=== PATIENT | male | born 1965 | race Caucasian/White ===

== ENCOUNTER 2016-12-17 12:53 | Emergency (ER) | payer MEDICARE | END 2016-12-17 14:22 | disposition left against medical advice (07) | LOC: UCCORT 12:53 | DX: M79.662 Pain in left lower leg (principal); Z53.21 Procedure and treatment not carried out due to patient leaving prior to being seen by health care provider ==

== ENCOUNTER 2018-02-27 15:48 | Emergency (ER) | payer MEDICARE ==
[2018-02-27] MEDS ORDERED: NS 0.9% 1000 ML* 1,000 ML IV ONE (15:57)
[2018-02-27] MEDS ORDERED: Morphine VIAL* 4 MG/ML VIAL (1 ml vial) IV ONE (15:58)
[2018-02-27 16:37] LABS: ABS Basophils 0 10^3/ul (0-0.2); ABS Eosinophils 0.2 10^3/ul (0-0.6); ABS Lymphocytes 1.1 10^3/ul (1.0-4.8); ABS Monocytes 1.3 10^3/ul (0-0.8); ABS Neutrophils 9.1 10^3/ul (1.5-7.7); ABS Nucleated RBC 0 10^3/ul; Eosinophil % 1.6 % (0-6); Hematocrit 27 % (42-52); Hemoglobin 9.1 g/dl (14.0-18.0); Lymphocyte % 9.5 % (25-47); Mean Corpuscular HGB Conc 33 g/dl (31-36); Mean Corpuscular Hemoglobin 30 pg (27-31); Mean Corpuscular Volume 91 fL (80-94); Mean Platelet Volume 6.4 um3 (7.4-10.4); Nucleated Red Blood Cells % 0; Platelet Count 515 10^3/ul (150-450); Red Blood Count 2.99 10^6/ul (4.00-5.40); Red Cell Distribution Width 16 % (10.5-15); White Blood Count 11.7 10^3/ul (3.5-10.8)
[2018-02-27 16:52] LABS: INR 1.28 (0.77-1.02)
[2018-02-27 17:04] LABS: EGFR Non-African American 159.2 (>60)
[2018-02-27 17:20] LABS: Urine Appearance Clear; Urine Blood Negative (Negative); Urine Color Yellow; Urine Ketones Trace (Negative); Urine Protein Negative (Negative); Urine Specific Gravity 1.059 (1.010-1.030); Urine Urobilinogen Negative (Negative)
[2018-02-27] MEDS ORDERED: HYDROmorphone INJ* 2 MG/ML CARPUJECT SYRINGE IV SLOW PU ONE (17:27)
--- NOTE | 2018-02-27 17:45 | ED ---
Carlitos Quigley Angela, scribed for Sina Tillman MD on 02/27/18 at 1555 . Abdominal Pain/Male - HPI Summary HPI Summary: This pt is a 53 y/o male presenting to [facility] via EMS from Urgent care for abd pain x1 week and possible bowel obstruction. Pt was at Urgent Care where he had a CT scan of his abdomen/pelvis. He states he has hx of rectal CA and on February 02, 2018 pt had an ileostomy reversal where he thinks most of his large intestine was removed, procedure done in [facility]. Pt states his abdominal pain began 1 week ago. He reports he has been moving his bowels every day, the last time he had a bowel movement was today at around noon. Pt describes his stool as water. Denies hard stools. Pt additionally reports abdominal bloating and distension. Denies fever, nausea, vomiting, chest pain, SOB. Pt is on morphine for chronic back pain. - History of Current Complaint Stated Complaint: ABD PAIN Hx Obtained From: Patient Onset/Duration: Lasting Days, Still Present Timing: Lasting Days Severity Currently: Severe Pain Intensity: 10 Pain Scale Used: 0-10 Numeric Location: Diffuse Radiates: No Aggravating Factor(s): Nothing Alleviating Factor(s): Nothing Associated Signs And Symptoms: Positive: Diarrhea, Other - NEG: SOB. POS: bloated. Negative: Fever, Chest Pain, Nausea, Vomiting - Allergies/Home Medications Allergies/Adverse Reactions: Allergies Allergy/AdvReac Type Severity Reaction Status Date / Time LAYS POTATO CHIPS Allergy MOOD SWINGS Uncoded 06/10/17 15:20 MULSCLE RELAXERS Allergy SEVERE Uncoded 06/10/17 15:20 DEPRESSION PMH/Surg Hx/FS Hx/Imm Hx Endocrine/Hematology History: Denies: Hx Diabetes, Other Endocrine/Hematological Disorders Cardiovascular History: Denies: Hx Congestive Heart Failure, Hx Hypertension, Hx Pacemaker/ICD, Other Cardiovascular Problems/Disorders Respiratory History: Denies: Other Respiratory Problems/Disorders GI History: Reports: Other GI Disorders - NEW DX OF RECTAL CA History: Reports: Other Problems/Disorders - 2 months ago frequent urination Denies: Hx Renal Disease Musculoskeletal History: Reports: Hx Arthritis - BACK, Other Musculoskeletal History - see surgeries Sensory History: Denies: Hx Contacts or Glasses, Hx Hearing Aid, Other Sensory Impairments Opthamlomology History: Denies: Hx Contacts or Glasses, Other Sensory Impairments Neurological History: Reports: Other Neuro Impairments/Disorders - DEPRESSION/ PARANOID DELUSIONS Psychiatric History: Reports: Hx Anxiety, Hx Depression, Hx Suicide Attempt Denies: Hx Eating Disorder, Hx Panic Disorder, Other Psychiatric Issues/ Disorders - Cancer History Cancer Type, Location and Year: RECTAL CA- COLON RECTION Hx Chemotherapy: Yes - 05/22 Hx Radiation Therapy: Yes - Surgical History Surgery Procedure, Year, and Place: BACK SURGERY x 2. CSP - FUSION - ANTERIOR APPROACH. right femur ORIF. ERNESTO KNEES SCOPING. BOWEL RESECTION FOR CA 01/19 [facility]. R COLECTOMY WITH ILEOSTOMY 02/01/14. ILEOSTOMY REVERSAL [facility] Hx Anesthesia Reactions: No - Social History Alcohol Use: Occasionally Alcohol Amount: WEEKENDS IN THE SUMMER Substance Use Type: Reports: None Smoking Status (MU): Former Smoker Type: Cigarettes Length of Time of Smoking/Using Tobacco: 15 YRS Have You Smoked in the Last Year: No Review of Systems Negative: Fever Negative: Chest Pain Negative: Shortness Of Breath Gastrointestinal: Other - Abdominal distension and bloating Positive: Abdominal Pain, Diarrhea. Negative: Vomiting, Nausea All Other Systems Reviewed And Are Negative: Yes Physical Exam - Summary Physical Exam Summary: Appearance: Well appearing, no pain distress Skin: warm, dry, reflects adequate perfusion Head/face: normal. Moist mucous membranes. Eyes: EOMI, RAMU ENT: normal Neck: supple, non-tender Respiratory: CTA, breath sounds present Cardiovascular: RRR, pulses symmetrical Abdomen: Firmness on the subcutaneous tissue in the RLQ. Tenderness around this area. Right side of abd is all firm. Air tympany on the right side of abd. Bowel: present Musculoskeletal: normal, strength/ROM intact Neuro: normal, sensory motor intact, A&Ox3 Triage Information Reviewed: Yes Vital Signs On Initial Exam: Initial Vitals Temp Pulse Resp BP Pulse Ox 99.7 F 100 20 161/106 94 02/27/18 15:58 02/27/18 15:58 02/27/18 15:58 02/27/18 15:58 02/27/18 15:58 Vital Signs Reviewed: Yes Diagnostics - Vital Signs Vital Signs Temp Pulse Resp BP Pulse Ox 02/27/18 17:36 18 02/27/18 16:29 21 152/98 02/27/18 16:13 20 02/27/18 16:00 101 18 95 02/27/18 15:58 99.7 F 100 20 161/106 95 - Laboratory Lab Results: Lab Results 02/27/18 02/27/18 02/27/18 Range/Units 16:28 16:28 16:28 WBC 11.7 H (3.5-10.8) 10^3/ul RBC 2.99 L (4.00-5.40) 10^6/ul Hgb 9.1 L (14.0-18.0) g/dl Hct 27 L (42-52) % MCV 91 (80-94) fL MCH 30 (27-31) pg MCHC 33 (31-36) g/dl RDW 16 H (10.5-15) % Plt Count 515 H (150-450) 10^3/ul MPV 6.4 L (7.4-10.4) um3 Neut % (Auto) 77.3 (38-83) % Lymph % (Auto) 9.5 L (25-47) % [place] % (Auto) 11.4 H (0-7) % Eos % (Auto) 1.6 (0-6) % Baso % (Auto) 0.2 (0-2) % Absolute Neuts (auto) 9.1 H (1.5-7.7) 10^3/ul Absolute Lymphs (auto) 1.1 (1.0-4.8) 10^3/ul Absolute Monos (auto) 1.3 H (0-0.8) 10^3/ul Absolute Eos (auto) 0.2 (0-0.6) 10^3/ul Absolute Basos (auto) 0 (0-0.2) 10^3/ul Absolute Nucleated RBC 0 10^3/ul Nucleated RBC % 0 INR (Anticoag Therapy) 1.28 H (0.77-1.02) APTT 31.6 (26.0-36.3) seconds Sodium 135 (135-145) mmol/L Potassium 3.3 L (3.5-5.0) mmol/L Chloride 95 L (101-111) mmol/L Carbon Dioxide 31 (22-32) mmol/L Anion Gap 9 (2-11) mmol/L BUN 10 (6-24) mg/dL Creatinine 0.54 L (0.67-1.17) mg/dL Est GFR ( Amer) 192.6 (>60) Est GFR (Non-Af Amer) 159.2 (>60) BUN/Creatinine Ratio 18.5 (8-20) Glucose 95 (70-100) mg/dL Lactic Acid (0.5-2.0) mmol/L Calcium 9.3 (8.6-10.3) mg/dL Total Bilirubin 0.40 (0.2-1.0) mg/dL AST 31 (13-39) U/L ALT 49 (7-52) U/L Alkaline Phosphatase 105 H (34-104) U/L Troponin I 0.01 (<0.04) ng/mL C-Reactive Protein 273.55 H (<8.01) mg/L Total Protein 7.6 (6.4-8.9) g/dL Albumin 3.1 L (3.2-5.2) g/dL Globulin 4.5 H (2-4) g/dL Albumin/Globulin Ratio 0.7 L (1-3) Lipase < 10 L (11.0-82.0) U/L Urine Color Urine Appearance Urine pH (5-9) Ur Specific [place] (1.010-1.030) Urine Protein (Negative) Urine Ketones (Negative) Urine Blood (Negative) Urine Nitrate (Negative) Urine Bilirubin (Negative) Urine Urobilinogen (Negative) Ur Leukocyte Esterase (Negative) Urine Glucose (Negative) 02/27/18 02/27/18 Range/Units 16:28 17:04 WBC (3.5-10.8) 10^3/ul RBC (4.00-5.40) 10^6/ul Hgb (14.0-18.0) g/dl Hct (42-52) % MCV (80-94) fL MCH (27-31) pg MCHC (31-36) g/dl RDW (10.5-15) % Plt Count (150-450) 10^3/ul MPV (7.4-10.4) um3 Neut % (Auto) (38-83) % Lymph % (Auto) (25-47) % [place] % (Auto) (0-7) % Eos % (Auto) (0-6) % Baso % (Auto) (0-2) % Absolute Neuts (auto) (1.5-7.7) 10^3/ul Absolute Lymphs (auto) (1.0-4.8) 10^3/ul Absolute Monos (auto) (0-0.8) 10^3/ul Absolute Eos (auto) (0-0.6) 10^3/ul Absolute Basos (auto) (0-0.2) 10^3/ul Absolute Nucleated RBC 10^3/ul Nucleated RBC % INR (Anticoag Therapy) (0.77-1.02) APTT (26.0-36.3) seconds Sodium (135-145) mmol/L Potassium (3.5-5.0) mmol/L Chloride (101-111) mmol/L Carbon Dioxide (22-32) mmol/L Anion Gap (2-11) mmol/L BUN (6-24) mg/dL Creatinine (0.67-1.17) mg/dL Est GFR ( Amer) (>60) Est GFR (Non-Af Amer) (>60) BUN/Creatinine Ratio (8-20) Glucose (70-100) mg/dL Lactic Acid 0.7 (0.5-2.0) mmol/L Calcium (8.6-10.3) mg/dL Total Bilirubin (0.2-1.0) mg/dL AST (13-39) U/L ALT (7-52) U/L Alkaline Phosphatase (34-104) U/L Troponin I (<0.04) ng/mL C-Reactive Protein (<8.01) mg/L Total Protein (6.4-8.9) g/dL Albumin (3.2-5.2) g/dL Globulin (2-4) g/dL Albumin/Globulin Ratio (1-3) Lipase (11.0-82.0) U/L Urine Color Yellow Urine Appearance Clear Urine pH 6.0 (5-9) Ur Specific [place] 1.059 H (1.010-1.030) Urine Protein Negative (Negative) Urine Ketones Trace A (Negative) Urine Blood Negative (Negative) Urine Nitrate Negative (Negative) Urine Bilirubin Negative (Negative) Urine Urobilinogen Negative (Negative) Ur Leukocyte Esterase Negative (Negative) Urine Glucose Negative (Negative) Result Diagrams: 02/27/18 16:28 02/27/18 16:28 Lab Statement: Any lab studies that have been ordered have been reviewed, and results considered in the medical decision making process. - EKG 15:59 Cardiac Rate: NL - at 93 bpm EKG Rhythm: Sinus Rhythm ST Segment: Normal EKG Interpretation: Normal axis. Normal intervals. - Additional Comments Diagnostic Additional Comments: Abdomen/Pelvis CT, as read by radiologist IMPRESSION: 1. LARGE AIR-FLUID COLLECTION IN THE RIGHT UPPER QUADRANT SUSPICIOUS FOR A HIGH- GRADE CLOSED LOOP OBSTRUCTION ADJACENT TO A SURGICAL SITE LESS LIKELY A LARGE ABSCESS. RECOMMEND URGENT SURGICAL CONSULTATION. IN ADDITION A FOLLOW-UP CT OF THE ABDOMEN WITHOUT IV CONTRAST IN APPROXIMATELY 2 HOURS MAY BE HELPFUL IN FURTHER DEFINING THIS ABNORMALITY WITH PROGRESSION OF THE ORAL CONTRAST ON THE CURRENT STUDY. 2. THICKENED GALLBLADDER WALL POSSIBLY RELATED TO INFLAMMATION FROM THE ADJACENT DILATED FLUID-FILLED STRUCTURE. 3. NEW SLIGHTLY COMPLEX CYSTIC STRUCTURE WITHIN THE LIVER. RECOMMEND AN ULTRASOUND OF THE LIVER FOR FURTHER EVALUATION. 4. SMALL AMOUNT OF FREE INTRAPERITONEAL FLUID. 5. HEPATOSPLENOMEGALY. Re-Evaluation - Re-Evaluation First Eval Re-Evaluation Time: 16:40 Comment: Dr. Dominguez is the accepting physician from [facility]. Pt will be going to the ER. Abdominal Pain Fem Course/Dx - Course Course Of Treatment: Patient had CT scan performed at the urgent care prior to being sent to this facility. The urgent care CT shows high grade closed loop bowel obstruction right near the area of the stoma. The patient's abdomen is firm and very tender as well as distended. We spoke with the office of the colorectal surgeon will be looking for the patient on arrival to [facility] in [place]. Accepting physician is in the ER. The patient was treated for his discomfort. He will be transported by ALS ambulance. - Diagnoses Differential Diagnosis/HQI/PQRI: Other - Small bowel obstruction versus abscess Provider Diagnoses: Small bowel obstruction due to postoperative adhesions, Status post reversal of ileostomy - Provider Notifications Discussed Care Of Patient With: KURTIS Daniel Time Discussed With Above Provider: 16:19 Instructed by Provider To: Other - I discussed pt care with KURTIS Daniel, from Colorectal surgery - [facility], and is aware of the pt being transferred. Discharge - Sign-Out/Discharge Documenting (check all that apply): Discharge/Admit/Transfer - Transfer - Discharge Plan Condition: Fair Disposition: TRANS HIGHER LVL OF CARE FAC Referrals: No Primary Care Phys,NOPCP [Primary Care Provider] - - Billing Disposition and Condition Condition: FAIR Disposition: Trans Higher Lvl of Care Fac The documentation as recorded by the Carlitos thomas Angela accurately reflects the service I personally performed and the decisions made by me, Sina Tillman MD.
[2018-02-27 17:57] VITALS: BP 158/101
== END 2018-02-27 17:57 | disposition short-term general hospital (02) ==
LOC: ED 15:48
DX: K56.50 Intestinal adhesions [bands], unspecified as to partial versus complete obstruction (principal); C20 Malignant neoplasm of rectum; M54.9 Dorsalgia, unspecified; G89.29 Other chronic pain; Z85.528 Personal history of other malignant neoplasm of kidney; Z90.49 Acquired absence of other specified parts of digestive tract; Z87.891 Personal history of nicotine dependence; Z98.890 Other specified postprocedural states; Z88.8 Allergy status to other drugs, medicaments and biological substances; R16.2 Hepatomegaly with splenomegaly, not elsewhere classified; K76.89 Other specified diseases of liver
CPT/HCPCS: 36415; 80053; 81003; 83605; 83690; 84484; 85025; 85610; 85730; 86140; 87040; 93005; 96361; 96374; 96375; 99284; J1170; J2270

== ENCOUNTER 2019-10-18 17:42 | Emergency (ER) | payer MEDICARE ==
--- NOTE | 2019-10-18 19:01 | ED ---
Lower Extremity - HPI Summary HPI Summary: Patient with history of chronic EtOH and varicose veins in left lower extremity complains of bleed from site of varicose vein on left calf. States week ago at same site. Patient states he believes he scraped the scab off today. Bleeding controlled. Patient states he did not want to come to the ED. Denies any other pain, injury or symptoms. - History of Current Complaint Chief Complaint: EDExtremityLower Stated Complaint: LEG PAIN PER EMS Time Seen by Provider: 10/18/19 17:59 Hx Obtained From: Patient Mechanism Of Injury: Other Onset/Duration: Hours Severity Currently: None Pain Intensity: 0 Pain Scale Used: 0-10 Numeric Associated Signs And Symptoms: Positive: Negative Able to Bear Weight: Yes - Allergies/Home Medications Allergies/Adverse Reactions: Allergies Allergy/AdvReac Type Severity Reaction Status Date / Time LAYS POTATO CHIPS Allergy MOOD SWINGS Uncoded 06/10/17 15:20 MULSCLE RELAXERS Allergy SEVERE Uncoded 06/10/17 15:20 DEPRESSION PMH/Surg Hx/FS Hx/Imm Hx Endocrine/Hematology History: Denies: Hx Diabetes, Other Endocrine/Hematological Disorders Cardiovascular History: Denies: Hx Congestive Heart Failure, Hx Hypertension, Hx Pacemaker/ICD, Other Cardiovascular Problems/Disorders Respiratory History: Denies: Other Respiratory Problems/Disorders GI History: Reports: Hx Obstructive Bowel, Hx Ileostomy - Ileostomy 2013 with reversal, Other GI Disorders - Colon CA with ileostomy placement and reversal History: Reports: Other Problems/Disorders - 2 months ago frequent urination Denies: Hx Renal Disease Musculoskeletal History: Reports: Hx Arthritis - BACK, Other Musculoskeletal History - see surgeries Sensory History: Reports: Hx Contacts or Glasses Denies: Hx Hearing Aid, Other Sensory Impairments Opthamlomology History: Reports: Hx Contacts or Glasses Denies: Other Sensory Impairments EENT History: Denies: Hx Deafness Neurological History: Reports: Other Neuro Impairments/Disorders - DEPRESSION/ PARANOID DELUSIONS Psychiatric History: Reports: Hx Anxiety, Hx Depression, Hx Schizophrenia, Hx Suicide Attempt Denies: Hx Eating Disorder, Hx Panic Disorder, Other Psychiatric Issues/ Disorders - Cancer History Cancer Type, Location and Year: RECTAL CA-. Recieved Chemo and Radiation Hx Chemotherapy: Yes - 05/22 Hx Radiation Therapy: Yes - Surgical History Surgery Procedure, Year, and Place: BACK SURGERY x 2. CSP - FUSION - ANTERIOR APPROACH. right femur ORIF. ERNESTO KNEES SCOPING. BOWEL RESECTION FOR CA 01/19 [facility]. R COLECTOMY WITH ILEOSTOMY 02/01/14. ILEOSTOMY REVERSAL [facility] Hx Anesthesia Reactions: No Infectious Disease History: No Infectious Disease History: Denies: Traveled Outside the [place] in Last 30 Days - Family History Known Family History: Positive: Other Family History: No FHx of colon CA - Social History Alcohol Use: Occasionally Alcohol Amount: WEEKENDS IN THE SUMMER Substance Use Type: Reports: None Smoking Status (MU): Former Smoker Type: Cigarettes Length of Time of Smoking/Using Tobacco: 15 YRS Have You Smoked in the Last Year: No Review of Systems Constitutional: Negative Eyes: Negative ENT: Negative Cardiovascular: Negative Respiratory: Negative Gastrointestinal: Negative Genitourinary: Negative Positive: Arthralgia Skin: Other Neurological/Mental Status: Negative Psychological: Normal All Other Systems Reviewed And Are Negative: Yes Physical Exam - Summary Physical Exam Summary: Abrasion site of varicose vein on left calf. No active bleeding at this time. No other evidence of trauma, erythema, deformity, swelling. Nontender. PMS intact distally. No indication for suturing. Pressure wrap applied. Triage Information Reviewed: Yes Vital Signs On Initial Exam: Initial Vitals Temp Pulse Resp BP Pulse Ox 98.1 F 85 19 98/76 93 10/18/19 17:50 10/18/19 17:50 10/18/19 17:50 10/18/19 17:50 10/18/19 17:50 Vital Signs Reviewed: Yes Appearance: Positive: Well-Appearing Skin: Positive: Warm Head/Face: Positive: Normal Head/Face Inspection Eyes: Positive: Normal Neck: Positive: Supple Respiratory/Lung Sounds: Positive: Clear to Auscultation Cardiovascular: Positive: Normal Abdomen Description: Positive: Nontender Musculoskeletal: Positive: Normal Neurological: Positive: Normal Psychiatric: Positive: Normal AVPU Assessment: Alert - Tre Coma Scale Best Eye Response: 4 - Spontaneous Best Motor Response: 6 - Obeys Commands Best Verbal Response: 5 - Oriented Coma Scale Total: 15 Procedures - Sedation Patient Received Moderate/Deep Sedation with Procedure: No Diagnostics - Vital Signs Vital Signs Temp Pulse Resp BP Pulse Ox 10/18/19 17:50 98.1 F 85 19 98/76 93 - Laboratory Lab Statement: Any lab studies that have been ordered have been reviewed, and results considered in the medical decision making process. Lower Extremity Course/Dx - Course Course Of Treatment: Patient with history of chronic EtOH and varicose veins in left lower extremity complains of bleed from site of varicose vein on left calf. States week ago at same site. Patient states he believes he scraped the scab off today. Bleeding controlled. Patient states he did not want to come to the ED. Denies any other pain, injury or symptoms. Vital signs within normal limits. - Diagnoses Provider Diagnoses: Bleeding from varicose vein Discharge ED - Sign-Out/Discharge Documenting (check all that apply): Patient Departure - Discharge Plan Condition: Stable Disposition: HOME Patient Education Materials: Abrasion (ED) Referrals: No Primary Care Phys,NOPCP [Primary Care Provider] - Additional Instructions: Keep wound clean and dry and protected. Wrap after washing and keep covered for 7 days. Return to the ED for any new or worsening symptoms. - Billing Disposition and Condition Condition: STABLE Disposition: Home
[2019-10-18 19:11] VITALS: BP 92/67
== END 2019-10-18 19:09 | disposition home or self-care (01) ==
LOC: ED 17:42
DX: I83.892 Varicose veins of left lower extremity with other complications (principal); Z88.8 Allergy status to other drugs, medicaments and biological substances; Z91.018 Allergy to other foods; Z87.891 Personal history of nicotine dependence
CPT/HCPCS: 99281

== ENCOUNTER 2021-02-28 08:47 | Inpatient (IN) ==
[~2021-02-28 08:47] MED LIST: Buffered Lidocaine 1% SYRIN 1 ml INTRADERM ONE; Famotidine IV 10 MG/ML 2 ml VIAL (20 mg) IV ONE; Lactated Ringers 1000 ml BAG 1,000 ML IV SCH
[2021-02-28] MEDS ORDERED: Famotidine IV 10 MG/ML 2 ml VIAL (20 mg) ONE (09:40)
[2021-02-28] MEDS ORDERED: Heparin 5000 UNITS/ML 1 mL VIAL ONE (09:43)
[2021-02-28] MEDS ORDERED: Ertapenem 1 GM in NS 0.9% 50 ML IVPB ONE (10:00)
[2021-02-28] MEDS ORDERED: Propofol 10 MG/ML 20 ML BTL ONE (10:01)
[2021-02-28] MEDS ORDERED: Lidocaine 2% PF 5 ML VIAL ONE (10:05)
[2021-02-28] MEDS ORDERED: fentaNYL 250 mcg/5 ml 50 MCG/ML 5 ml VIAL (250 MCG) ONE (10:06)
[2021-02-28] MEDS ORDERED: Rocuronium 50 mg VIAL 10 mg/ml 5 ml VIAL (50 mg) ONE ×3 (10:08→13:27)
[2021-02-28] MEDS ORDERED: Ketamine HCL 50 mg/ml 10 ml VIAL (500 MG) ONE (10:13)
[2021-02-28] MEDS ORDERED: Midazolam 5 mg/5 ml VIAL 1 mg/ml 5 ml VIAL (5 mg) ONE (11:27)
[2021-02-28] MEDS ORDERED: Lidocaine 4 MG/ML IV PREMIX 2,000 MG/500 ML BAG IV SCH (12:00)
[2021-02-28] MEDS ORDERED: Phenylephrine IV 10 MG/ML 1 ml VIAL ONE (12:42)
[2021-02-28] MEDS ORDERED: Sugammadex 500 MG/5 ML 5 ml VIAL IV PUSH ONE (13:24)
[2021-02-28] MEDS ORDERED: HYDROmorphone 1 MG/1 ML SYRINGE ONE ×3 (13:50→15:55)
[2021-02-28] MEDS ORDERED: Ondansetron 4 mg VIAL 2 MG/ML 2 ml VIAL ONE (14:15)
[2021-02-28] MEDS ORDERED: Bupivacaine 0.5% SDV PF 30ML VIAL ONE (14:15)
[2021-02-28] MEDS ORDERED: Dexamethasone IV 4 MG/ML VIAL 1 ml VIAL ONE (14:15)
[2021-02-28] MEDS ORDERED: Bupivacaine 0.25% SDV 30 ML ONE (14:15)
[2021-02-28] MEDS ORDERED: Ondansetron 4 mg VIAL 2 MG/ML 2 ml VIAL IV PRN ×2 (15:12→15:13)
[2021-02-28] MEDS ORDERED: Acetaminophen IV 1 GM/100ML 1,000 MG/100 ML VIAL IVPB ONE (15:12)
[2021-02-28] MEDS ORDERED: DiMENhydriNATE IV 50 mg/ml 1 ml VIAL IV PUSH PRN (15:12)
[2021-02-28] MEDS ORDERED: Naloxone 0.4 mg VIAL 0.4 mg/ml 1 ml VIAL IV PRN (15:12)
[2021-02-28] MEDS ORDERED: Acetaminophen IV 1 GM/100ML 100 ML ONE (15:16)
[2021-02-28] MEDS: HYDROmorphone 1 MG/1 ML SYRINGE IV PRN ×3 (15:24→15:56)
[2021-02-28] MEDS ORDERED: LORazepam 2 mg VIAL 1 ml IV PUSH SCH (16:00)
[2021-02-28] MEDS: Lactated Ringers 1000 ml BAG 1,000 ML IV SCH (17:19)
[2021-02-28] MEDS: HYDROmorphone 1 MG/1 ML SYRINGE IV SLOW PU PRN (19:30)
[2021-02-28] MEDS: HYDROmorphone 0.5 MG/0.5 ML SYRINGE IV SLOW PU PRN (22:39)
[2021-02-28] MEDS: Heparin 5000 UNITS/ML 1 mL VIAL SUBCUT SCH (22:39)
[2021-03-01] MEDS: Lactated Ringers 1000 ml BAG 1,000 ML IV SCH ×4 (00:07→19:52)
[2021-03-01 05:36] LABS: ABS Lymphocytes 0.9 10^3/ul (1.0-4.8); ABS Monocytes 0.8 10^3/ul (0-0.8); ABS Neutrophils 5.5 10^3/ul (1.5-7.7); Eosinophil % 0.2 %; Hematocrit 36 % (42-52); Hemoglobin 12.1 g/dL (14.0-18.0); Lymphocyte % 12.4 %; Mean Corpuscular HGB Conc 34 g/dL (31-36); Mean Corpuscular Hemoglobin 32 pg (27-31); Mean Corpuscular Volume 95 fL (80-94); Mean Platelet Volume 7.4 fL (7.4-10.4); Nucleated Red Blood Cells % 0.2; Platelet Count 222 10^3/uL (150-450); Red Cell Distribution Width 18 % (10-15); White Blood Count 7.2 10^3/uL (3.5-10.8)
[2021-03-01 05:55] LABS: Calcium 8.6 mg/dL (8.6-10.3); EGFR African American 171.9 (>60); EGFR Non-African American 142.1 (>60)
[2021-03-01] MEDS: Heparin 5000 UNITS/ML 1 mL VIAL SUBCUT SCH ×3 (05:55→23:50)
[2021-03-01] MEDS: HYDROmorphone 0.5 MG/0.5 ML SYRINGE IV SLOW PU PRN ×3 (07:38→21:03)
[2021-03-01] MEDS: Multivitamins/Minerals TAB PO SCH (08:56)
[2021-03-02] MEDS: Lactated Ringers 1000 ml BAG 1,000 ML IV SCH ×4 (02:29→22:45)
[2021-03-02] MEDS: HYDROmorphone 0.5 MG/0.5 ML SYRINGE IV SLOW PU PRN ×3 (04:21→20:06)
[2021-03-02] MEDS: Heparin 5000 UNITS/ML 1 mL VIAL SUBCUT SCH ×3 (06:09→22:44)
[2021-03-02] MEDS: HYDROmorphone 1 MG/1 ML SYRINGE IV SLOW PU PRN ×2 (08:22→16:04)
[2021-03-02] MEDS: Multivitamins/Minerals TAB PO SCH (08:23)
[2021-03-03] MEDS: HYDROmorphone 0.5 MG/0.5 ML SYRINGE IV SLOW PU PRN ×3 (01:27→13:56)
[2021-03-03] MEDS: Lactated Ringers 1000 ml BAG 1,000 ML IV SCH ×3 (05:52→23:59)
[2021-03-03] MEDS: Heparin 5000 UNITS/ML 1 mL VIAL SUBCUT SCH ×3 (05:53→21:42)
[2021-03-03] MEDS: Multivitamins/Minerals TAB PO SCH (07:51)
[2021-03-03] MEDS: HYDROmorphone 1 MG/1 ML SYRINGE IV SLOW PU PRN (20:08)
[2021-03-04] MEDS: Heparin 5000 UNITS/ML 1 mL VIAL SUBCUT SCH ×3 (05:30→22:22)
[2021-03-04] MEDS: Multivitamins/Minerals TAB PO SCH (07:57)
[2021-03-04] MEDS: Lactated Ringers 1000 ml BAG 1,000 ML IV SCH ×3 (08:02→21:19)
[2021-03-04] MEDS: HYDROmorphone 0.5 MG/0.5 ML SYRINGE IV SLOW PU PRN (08:05)
[2021-03-04] MEDS: oxyCODONE/Acetamin 5/325 mg TAB PO PRN ×3 (12:09→22:22)
[2021-03-05] MEDS: Heparin 5000 UNITS/ML 1 mL VIAL SUBCUT SCH (05:16)
[2021-03-05] MEDS: oxyCODONE/Acetamin 5/325 mg TAB PO PRN ×2 (06:18→09:59)
[2021-03-05] MEDS: Multivitamins/Minerals TAB PO SCH (09:24)
[2021-03-05] MEDS: Lactated Ringers 1000 ml BAG 1,000 ML IV SCH (09:59)
[2021-03-05 11:31] VITALS: BP 150/94
== END 2021-03-05 15:41 | disposition home health service (06) | DRG 330 ==
LOC: AA 08:47 → SSU 14:58
PROVIDERS: ADMIT Surgery; ATTEND Surgery

== ENCOUNTER 2021-11-11 17:17 | Inpatient (IN) ==
[2021-11-11 18:45] LABS: ABS Eosinophils 0.2 10^3/ul (0-0.6); ABS Lymphocytes 1.7 10^3/ul (1.0-4.8); ABS Monocytes 0.8 10^3/ul (0-0.8); Eosinophil % 2.7 %; Hematocrit 41 % (42-52); Hemoglobin 13.7 g/dL (14.0-18.0); Mean Corpuscular HGB Conc 34 g/dL (31-36); Mean Corpuscular Hemoglobin 34 pg (27-31); Mean Corpuscular Volume 99 fL (80-94); Mean Platelet Volume 7.6 fL (7.4-10.4); Nucleated Red Blood Cells % 0.1; Platelet Count 262 10^3/uL (150-450); Red Cell Distribution Width 15 % (10-15); White Blood Count 5.7 10^3/uL (3.5-10.8)
[2021-11-11 19:01] LABS: Ammonia 36 mcmol/L (16-53)
[2021-11-11 19:07] LABS: BNP 1010 pg/mL (<=100)
[2021-11-11 19:08] LABS: Troponin I 0.03 ng/mL (<0.03)
[2021-11-11 19:25] LABS: ALT 75 U/L (7-52); AST 58 U/L (13-39); Albumin 3.4 g/dL (3.2-5.2); Albumin/Globulin Ratio 1.8 (1-3); Alkaline Phosphatase 90 U/L (35-149); Anion Gap 5 mmol/L (2-11); Blood Urea Nitrogen 17 mg/dL (6-24); CO2 Carbon Dioxide 24 mmol/L (22-32); Calcium 8.6 mg/dL (8.6-10.3); Chloride 107 mmol/L (101-111); Globulin 1.9 g/dL (2-4); Glucose 84 mg/dL (70-100); Lipase 14 U/L (11.0-82.0); Magnesium 1.5 mg/dL (1.9-2.7); Potassium 4.4 mmol/L (3.5-5.0); Sodium 136 mmol/L (135-145); Total Protein 5.3 g/dL (6.4-8.9); eGFR CKD-EPI 102.7 (>60)
[2021-11-11 19:26] LABS: Alcohol, S < 13 mg/dL (<13); Creatine Kinase 75 U/L (10-223)
[2021-11-11] MEDS ORDERED: Iodixanol (CONTRAST) 320 MG/ML 100 ML SDV IV ONE (19:46)
[2021-11-11] MEDS ORDERED: Magnesium Sulfate IV 3 GM in NS 0.9% 100 ml BAG 100 ML IVPB ONE (20:11)
[2021-11-11] MEDS ORDERED: Magnesium Sulfate 1 GM IV 1 GM/100 ML BAG IV ONE (22:00)
[2021-11-11] MEDS ORDERED: Magnesium Sulfate 2 GM IV (Premix) IVPB ONE (22:30)
[2021-11-11 22:31] LABS: Troponin I 0.03 ng/mL (<0.03)
[2021-11-12] MEDS ORDERED: Iohexol 350 (CONTRAST) 500 ML MDV IV ONE (00:22)
[2021-11-12] MEDS ORDERED: Enoxaparin 100 MG/ML SYR SUBCUT SCH ×2 (03:00→18:00)
[2021-11-12] MEDS ORDERED: Lorazepam PYXIS KEY PRN (03:07)
[2021-11-12] MEDS ORDERED: LORazepam 2 mg VIAL 1 ml IV PUSH ONE (03:08)
[2021-11-12 05:14] LABS: ABS Eosinophils 0.2 10^3/ul (0-0.6); ABS Lymphocytes 1.7 10^3/ul (1.0-4.8); ABS Monocytes 0.8 10^3/ul (0-0.8); Eosinophil % 3.1 %; Hematocrit 40 % (42-52); Hemoglobin 13.2 g/dL (14.0-18.0); Lymphocyte % 29.5 %; Mean Corpuscular HGB Conc 33 g/dL (31-36); Mean Corpuscular Hemoglobin 33 pg (27-31); Mean Corpuscular Volume 99 fL (80-94); Mean Platelet Volume 7.4 fL (7.4-10.4); Nucleated Red Blood Cells % 0.3; Platelet Count 241 10^3/uL (150-450); Red Cell Distribution Width 15 % (10-15); White Blood Count 5.6 10^3/uL (3.5-10.8)
[2021-11-12 05:20] LABS: INR 1.77 (0.86-1.15)
[2021-11-12 05:47] LABS: Albumin 3.2 g/dL (3.2-5.2); Albumin/Globulin Ratio 1.5 (1-3); Calcium 8.4 mg/dL (8.6-10.3); Globulin 2.1 g/dL (2-4); Magnesium 1.7 mg/dL (1.9-2.7); Potassium 3.8 mmol/L (3.5-5.0); Total Bilirubin 0.9 mg/dL (0.2-1.0); Total Protein 5.3 g/dL (6.4-8.9); eGFR CKD-EPI 105.9 (>60)
[2021-11-12 05:55] LABS: Urine Appearance Clear; Urine Bilirubin Negative (Negative); Urine Blood Negative (Negative); Urine Color Yellow; Urine Glucose Negative (Negative); Urine Ketones Negative (Negative); Urine Nitrite Negative (Negative); Urine Protein Negative (Negative); Urine Urobilinogen Negative (Negative)
[2021-11-12] MEDS ORDERED: LORazepam 2 mg VIAL 1 ml IV PUSH SCH (06:00)
[2021-11-12] MEDS ORDERED: Magnesium Sulfate 2 gm BAG 2 GM/50 ML BAG IVPB ONE (06:06)
[2021-11-12 06:45] LABS: Urine Specific Gravity > 1.060 (1.002-1.030)
[2021-11-12] MEDS ORDERED: Potassium Chlor 20 meq TAB.ER PO ONE (08:10)
[2021-11-12] MEDS ORDERED: Magnesium Sulfate IV 3 GM in NS 0.9% 100 ml BAG 100 ML IVPB ONE (08:10)
[2021-11-12] MEDS ORDERED: diPHENhydraMINE 25 mg TAB PO PRN (13:17)
[2021-11-12] MEDS ORDERED: fentaNYL 100 mcg/2 ml 50 MCG/ML VIAL ONE (14:20)
[2021-11-12] MEDS ORDERED: Heparin 1,000 UNIT/ML 10 ml (10,000 UNITS) CATHLAB/DIALYSIS ONE (14:20)
[2021-11-12] MEDS ORDERED: VERAPAMIL 2.5 MG/ML 2 ML VIAL ** 5 mg/2 ml ONE (14:20)
[2021-11-12] MEDS ORDERED: Midazolam 5 mg/5 ml VIAL 1 mg/ml 5 ml VIAL (5 mg) ONE (14:20)
[2021-11-12] MEDS ORDERED: Lidocaine 1% VIAL 10 MG/ML VIAL ONE (14:21)
[2021-11-12] MEDS ORDERED: Heparin 2 UNITS/ML 1000 mls 3,000 ML IV ONE (14:21)
[2021-11-12] MEDS ORDERED: Iohexol 350 (CONTRAST) 200 ML MDV IV ONE (14:21)
[2021-11-12] MEDS ORDERED: diPHENhydraMINE IV 50 MG/ML 1 ml VIAL (BENADRYL) ONE (14:37)
[2021-11-12] MEDS ORDERED: diPHENhydraMINE 25 mg TAB ONE (14:40)
[2021-11-12] MEDS ORDERED: Furosemide 40 mg/4 ml IV VIAL IV SLOW PU ONE (15:02)
[2021-11-12] MEDS ORDERED: NS 0.9% 1000 ml BAG 1,000 ML IV SCH (15:15)
[2021-11-12] MEDS ORDERED: Diazepam INJ CARPUJECT 5 MG/ML IV ONE ×2 (20:49→23:51)
[2021-11-12] MEDS: LORazepam 2 mg VIAL 1 ml IV PUSH SCH (23:33)
[2021-11-13] MEDS: LORazepam 2 mg VIAL 1 ml IV PUSH SCH ×10 (01:24→21:46)
[2021-11-13 06:03] LABS: Hematocrit 41 % (42-52); Hemoglobin 13.6 g/dL (14.0-18.0); Mean Corpuscular HGB Conc 34 g/dL (31-36); Mean Corpuscular Hemoglobin 33 pg (27-31); Mean Corpuscular Volume 99 fL (80-94); Mean Platelet Volume 7.5 fL (7.4-10.4); Platelet Count 238 10^3/uL (150-450); Red Blood Count 4.11 10^6 /uL (4.18-5.48); Red Cell Distribution Width 15 % (10-15); White Blood Count 4.5 10^3/uL (3.5-10.8)
[2021-11-13 06:48] LABS: Magnesium 1.6 mg/dL (1.9-2.7); Potassium 4.5 mmol/L (3.5-5.0); eGFR CKD-EPI 103.1 (>60)
[2021-11-13 07:01] LABS: Carcinoembryonic Antigen 1.8 ng/mL (0.1-5.0)
[2021-11-13] MEDS ORDERED: Magnesium Sulf 4 GM/100 ML IV 4,000 MG/100 ML BAG IVPB ONE (07:02)
[2021-11-13] MEDS ORDERED: Furosemide 40 mg/4 ml IV VIAL IV SLOW PU ONE (09:44)
[2021-11-13] MEDS ORDERED: Thiamine 100 MG/ML 2 ml VIAL 500 MG in NS 0.9% 250 ml 250 ML IV ONE (09:49)
[2021-11-13] MEDS ORDERED: Dextrose 50% Syringe 50 ml 25 GM/50 ML SYRINGE IV PUSH PRN (09:52)
[2021-11-13] MEDS: Multivitamins/Minerals TAB PO SCH (10:41)
[2021-11-14] MEDS: LORazepam 2 mg VIAL 1 ml IV PUSH SCH ×8 (02:17→21:59)
[2021-11-14 05:51] LABS: Hematocrit 42 % (42-52); Hemoglobin 14.1 g/dL (14.0-18.0); Mean Corpuscular HGB Conc 34 g/dL (31-36); Mean Corpuscular Hemoglobin 33 pg (27-31); Mean Corpuscular Volume 98 fL (80-94); Mean Platelet Volume 7.7 fL (7.4-10.4); Platelet Count 230 10^3/uL (150-450); Red Blood Count 4.23 10^6 /uL (4.18-5.48); Red Cell Distribution Width 15 % (10-15); White Blood Count 5.9 10^3/uL (3.5-10.8)
[2021-11-14 06:07] LABS: Calcium 8.9 mg/dL (8.6-10.3); Magnesium 1.6 mg/dL (1.9-2.7); eGFR CKD-EPI 96.4 (>60)
[2021-11-14] MEDS ORDERED: Furosemide 40 mg/4 ml IV VIAL IV SLOW PU ONE (06:47)
[2021-11-14] MEDS ORDERED: Magnesium Sulf 4 GM/100 ML IV 4,000 MG/100 ML BAG IVPB ONE (08:00)
[2021-11-14] MEDS: Multivitamins/Minerals TAB PO SCH (09:56)
[2021-11-14] MEDS: Thiamine 100 MG/ML 2 ml VIAL 250 MG in NS 0.9% 100 ml BAG 100 ML IV SCH (12:27)
[2021-11-15] MEDS: LORazepam 2 mg VIAL 1 ml IV PUSH SCH ×4 (00:23→16:51)
[2021-11-15 05:32] LABS: Hematocrit 42 % (42-52); Mean Corpuscular HGB Conc 33 g/dL (31-36); Mean Corpuscular Hemoglobin 33 pg (27-31); Mean Corpuscular Volume 99 fL (80-94); Mean Platelet Volume 7.8 fL (7.4-10.4); Platelet Count 230 10^3/uL (150-450); Red Blood Count 4.26 10^6 /uL (4.18-5.48); Red Cell Distribution Width 15 % (10-15); White Blood Count 5.2 10^3/uL (3.5-10.8)
[2021-11-15 06:03] LABS: Calcium 8.7 mg/dL (8.6-10.3); Magnesium 1.6 mg/dL (1.9-2.7); Potassium 4.3 mmol/L (3.5-5.0); eGFR CKD-EPI 100.6 (>60)
[2021-11-15] MEDS ORDERED: Magnesium Sulf 4 GM/100 ML IV 4,000 MG/100 ML BAG IVPB ONE (07:03)
[2021-11-15] MEDS: Multivitamins/Minerals TAB PO SCH (08:29)
[2021-11-15 10:22] LABS: Uric Acid 7.8 mg/dL (4.4-7.6)
[2021-11-15 10:22] LABS: Uric Acid 7.1 mg/dL (4.4-7.6)
[2021-11-15] MEDS: Thiamine 100 MG/ML 2 ml VIAL 250 MG in NS 0.9% 100 ml BAG 100 ML IV SCH (11:57)
[2021-11-15] MEDS ORDERED: Haloperidol 5 mg/ml SDV IV/IM 5 MG/ML AMP ONE (14:08)
[2021-11-15 20:31] LABS: Urine Appearance Clear; Urine Bilirubin Negative (Negative); Urine Blood Negative (Negative); Urine Color Yellow; Urine Glucose Negative (Negative); Urine Ketones Negative (Negative); Urine Nitrite Negative (Negative); Urine Protein Negative (Negative); Urine Urobilinogen Negative (Negative)
[2021-11-16 07:34] LABS: Hematocrit 43 % (42-52); Hemoglobin 14.4 g/dL (14.0-18.0); Mean Corpuscular HGB Conc 33 g/dL (31-36); Mean Corpuscular Hemoglobin 33 pg (27-31); Mean Corpuscular Volume 99 fL (80-94); Mean Platelet Volume 7.7 fL (7.4-10.4); Platelet Count 224 10^3/uL (150-450); Red Blood Count 4.35 10^6 /uL (4.18-5.48); Red Cell Distribution Width 14 % (10-15); White Blood Count 4.7 10^3/uL (3.5-10.8)
[2021-11-16] MEDS: Multivitamins/Minerals TAB PO SCH (08:07)
[2021-11-16 08:21] LABS: Calcium 8.7 mg/dL (8.6-10.3); Magnesium 1.7 mg/dL (1.9-2.7); Potassium 4.2 mmol/L (3.5-5.0); eGFR CKD-EPI 102.7 (>60)
[2021-11-16] MEDS ORDERED: Magnesium Sulfate 2 gm BAG 2 GM/50 ML BAG IVPB ONE (09:49)
[2021-11-16] MEDS: Thiamine 100 MG/ML 2 ml VIAL 250 MG in NS 0.9% 100 ml BAG 100 ML IV SCH (10:09)
[2021-11-17 06:22] LABS: ABS Eosinophils 0.3 10^3/ul (0-0.6); ABS Lymphocytes 1.8 10^3/ul (1.0-4.8); ABS Monocytes 0.5 10^3/ul (0-0.8); ABS Neutrophils 2.3 10^3/ul (1.5-7.7); Eosinophil % 5.2 %; Hematocrit 42 % (42-52); Hemoglobin 14.1 g/dL (14.0-18.0); Mean Corpuscular HGB Conc 34 g/dL (31-36); Mean Corpuscular Hemoglobin 33 pg (27-31); Mean Corpuscular Volume 98 fL (80-94); Nucleated Red Blood Cells % 0.3; Platelet Count 221 10^3/uL (150-450); Red Cell Distribution Width 15 % (10-15); White Blood Count 4.9 10^3/uL (3.5-10.8)
[2021-11-17 06:46] LABS: Calcium 8.7 mg/dL (8.6-10.3); Magnesium 1.8 mg/dL (1.9-2.7); Potassium 4.6 mmol/L (3.5-5.0); eGFR CKD-EPI 103.1 (>60)
[2021-11-17] MEDS ORDERED: Magnesium Sulfate 2 gm BAG 2 GM/50 ML BAG IVPB ONE (07:19)
[2021-11-17] MEDS: Multivitamins/Minerals TAB PO SCH (08:52)
[2021-11-17] MEDS: Thiamine 100 MG/ML 2 ml VIAL 250 MG in NS 0.9% 100 ml BAG 100 ML IV SCH (10:43)
[2021-11-18 05:07] LABS: Calcium 8.8 mg/dL (8.6-10.3); Magnesium 1.9 mg/dL (1.9-2.7); Potassium 4.4 mmol/L (3.5-5.0)
[2021-11-18] MEDS ORDERED: Magnesium Sulfate IV 1GM/100ML 1 GM/100 ML BAG IV ONE (07:31)
[2021-11-18] MEDS: Multivitamins/Minerals TAB PO SCH (09:23)
[2021-11-19 05:58] LABS: Hematocrit 43 % (42-52); Hemoglobin 14.5 g/dL (14.0-18.0); Mean Corpuscular HGB Conc 34 g/dL (31-36); Mean Corpuscular Hemoglobin 33 pg (27-31); Mean Corpuscular Volume 98 fL (80-94); Mean Platelet Volume 8.3 fL (7.4-10.4); Platelet Count 206 10^3/uL (150-450); Red Blood Count 4.42 10^6 /uL (4.18-5.48); Red Cell Distribution Width 14 % (10-15)
[2021-11-19 06:31] LABS: Magnesium 1.9 mg/dL (1.9-2.7); Potassium 4.6 mmol/L (3.5-5.0); eGFR CKD-EPI 92.8 (>60)
[2021-11-19] MEDS ORDERED: Magnesium Sulfate IV 1GM/100ML 1 GM/100 ML BAG IV ONE (07:05)
[2021-11-19] MEDS ORDERED: Perflutren Lipid Microsphere 3 ML VIAL ONE (08:13)
[2021-11-19] MEDS: Multivitamins/Minerals TAB PO SCH (09:37)
[2021-11-20 05:47] LABS: Hematocrit 41 % (42-52); Hemoglobin 13.8 g/dL (14.0-18.0); Mean Corpuscular HGB Conc 34 g/dL (31-36); Mean Corpuscular Hemoglobin 33 pg (27-31); Mean Corpuscular Volume 98 fL (80-94); Platelet Count 197 10^3/uL (150-450); Red Cell Distribution Width 15 % (10-15); White Blood Count 4.6 10^3/uL (3.5-10.8)
[2021-11-20 06:22] LABS: Calcium 8.8 mg/dL (8.6-10.3); Magnesium 1.8 mg/dL (1.9-2.7); Potassium 4.2 mmol/L (3.5-5.0); eGFR CKD-EPI 100.6 (>60)
[2021-11-20] MEDS ORDERED: Magnesium Sulfate 2 gm BAG 2 GM/50 ML BAG IVPB ONE (07:10)
[2021-11-20] MEDS: Multivitamins/Minerals TAB PO SCH (08:30)
[2021-11-20 18:57] LABS: High Sensitivity Troponin 1 Hr 15 pg/mL (<20)
[2021-11-21 05:42] LABS: Hematocrit 42 % (42-52); Hemoglobin 14.1 g/dL (14.0-18.0); Mean Corpuscular HGB Conc 34 g/dL (31-36); Mean Corpuscular Hemoglobin 33 pg (27-31); Mean Corpuscular Volume 97 fL (80-94); Mean Platelet Volume 9.1 fL (7.4-10.4); Platelet Count 205 10^3/uL (150-450); Red Blood Count 4.32 10^6 /uL (4.18-5.48); Red Cell Distribution Width 14 % (10-15); White Blood Count 5.2 10^3/uL (3.5-10.8)
[2021-11-21 05:57] LABS: Magnesium 1.9 mg/dL (1.9-2.7); Potassium 4.6 mmol/L (3.5-5.0); eGFR CKD-EPI 100.2 (>60)
[2021-11-21] MEDS: Multivitamins/Minerals TAB PO SCH (10:06)
[2021-11-21 11:11] VITALS: BP 96/70
[2021-11-21 11:31] LABS: TSH Ultra Thyroid Stim Horm 7.15 mcIU/mL (0.34-5.60)
[2021-11-21 11:32] LABS: Free T3 2.8 pg/mL (2.5-3.9)
[2021-11-21 11:38] LABS: Ferritin 26.5 ng/mL (24-336)
[2021-11-21 11:41] LABS: Free T4 0.84 ng/dL (0.61-1.12)
== END 2021-11-21 13:37 | disposition home or self-care (01) | DRG 286 ==
LOC: ED 17:17 → SUATTDRO 11-12 01:47 → MEDTELE 11-12 01:47
PROVIDERS: ADMIT Student in an Organized Health Care Education/Training Program; ATTEND Student in an Organized Health Care Education/Training Program

== ENCOUNTER 2022-01-09 07:03 | Inpatient (IN) ==
[2022-01-09 08:43] LABS: ABS Eosinophils 0.2 10^3/ul (0-0.6); ABS Lymphocytes 1.8 10^3/ul (1.0-4.8); ABS Monocytes 0.8 10^3/ul (0-0.8); ABS Neutrophils 3.7 10^3/ul (1.5-7.7); Hematocrit 41 % (42-52); Hemoglobin 13.6 g/dL (14.0-18.0); Lymphocyte % 26.9 %; Mean Corpuscular HGB Conc 33 g/dL (31-36); Mean Corpuscular Hemoglobin 32 pg (27-31); Mean Corpuscular Volume 98 fL (80-94); Mean Platelet Volume 7.8 fL (7.4-10.4); Nucleated Red Blood Cells % 0.2; Platelet Count 241 10^3/uL (150-450); Red Blood Count 4.19 10^6 /uL (4.18-5.48); Red Cell Distribution Width 15 % (10-15); White Blood Count 6.5 10^3/uL (3.5-10.8)
[2022-01-09 09:08] LABS: High Sens Troponin Baseline 17 pg/mL (<20)
[2022-01-09 09:30] LABS: ALT 49 U/L (7-52); AST 36 U/L (13-39); Albumin 3.5 g/dL (3.2-5.2); Albumin/Globulin Ratio 1.5 (1-3); Alcohol, S < 13 mg/dL (<13); Alkaline Phosphatase 64 U/L (35-149); Anion Gap 6 mmol/L (2-11); Blood Urea Nitrogen 25 mg/dL (6-24); CO2 Carbon Dioxide 21 mmol/L (22-32); Calcium 9.4 mg/dL (8.6-10.3); Chloride 105 mmol/L (101-111); Globulin 2.3 g/dL (2-4); Glucose 96 mg/dL (70-100); Potassium 4.7 mmol/L (3.5-5.0); Sodium 132 mmol/L (135-145); Total Protein 5.8 g/dL (6.4-8.9); eGFR CKD-EPI 106.8 (>60)
[2022-01-09 10:09] LABS: High Sensitivity Troponin 1 Hr 17 pg/mL (<20)
[2022-01-09] MEDS ORDERED: Iohexol 350 (CONTRAST) 500 ML MDV IV ONE (10:47)
[2022-01-09] MEDS ORDERED: Furosemide 20 mg/2 ml IV VIAL IV ONE (14:20)
[2022-01-09 20:30] LABS: Urine Osmo 288 mOsm/kg (150-1150)
[2022-01-09 20:31] LABS: Osmolality Serum 290 mOsm/kg (275-295)
[2022-01-10 07:55] LABS: Hematocrit 43 % (42-52); Hemoglobin 14.4 g/dL (14.0-18.0); Mean Corpuscular HGB Conc 34 g/dL (31-36); Mean Corpuscular Hemoglobin 33 pg (27-31); Mean Corpuscular Volume 98 fL (80-94); Mean Platelet Volume 8.2 fL (7.4-10.4); Platelet Count 235 10^3/uL (150-450); Red Blood Count 4.41 10^6 /uL (4.18-5.48); Red Cell Distribution Width 16 % (10-15); White Blood Count 5.7 10^3/uL (3.5-10.8)
[2022-01-10 08:07] LABS: Magnesium 1.5 mg/dL (1.9-2.7); Potassium 4.5 mmol/L (3.5-5.0); eGFR CKD-EPI 97.6 (>60)
[2022-01-10] MEDS ORDERED: Magnesium Sulf 4 GM/100 ML IV 4,000 MG/100 ML BAG IVPB ONE (09:00)
[2022-01-10] MEDS ORDERED: Furosemide 20 mg/2 ml IV VIAL IV ONE (11:29)
[2022-01-10 13:33] LABS: HDL Cholesterol 63.7 mg/dL
[2022-01-11 05:36] LABS: Calcium 8.8 mg/dL (8.6-10.3); Magnesium 1.8 mg/dL (1.9-2.7); Potassium 4.5 mmol/L (3.5-5.0); eGFR CKD-EPI 98.9 (>60)
[2022-01-12 07:59] LABS: ABS Lymphocytes 0.5 10^3/ul (1.0-4.8); ABS Monocytes 0.6 10^3/ul (0-0.8); ABS Neutrophils 4.1 10^3/ul (1.5-7.7); Eosinophil % 0.3 %; Hematocrit 41 % (42-52); Lymphocyte % 8.6 %; Mean Corpuscular HGB Conc 34 g/dL (31-36); Mean Corpuscular Hemoglobin 33 pg (27-31); Mean Corpuscular Volume 97 fL (80-94); Mean Platelet Volume 7.5 fL (7.4-10.4); Platelet Count 175 10^3/uL (150-450); Red Blood Count 4.25 10^6 /uL (4.18-5.48); Red Cell Distribution Width 16 % (10-15); White Blood Count 5.3 10^3/uL (3.5-10.8)
[2022-01-12 09:17] LABS: Calcium 9.1 mg/dL (8.6-10.3); Magnesium 1.7 mg/dL (1.9-2.7); Potassium 4.3 mmol/L (3.5-5.0)
[2022-01-12 09:23] LABS: Phosphorus 3.9 mg/dL (2.5-5.0); eGFR CKD-EPI 100.2 (>60)
[2022-01-12] MEDS: Multivitamins/Minerals TAB PO SCH (09:36)
[2022-01-12] MEDS ORDERED: Magnesium Sulfate 2 gm BAG 2 GM/50 ML BAG IVPB ONE (12:48)
[2022-01-12 23:41] LABS: Hematocrit 43 % (42-52); Hemoglobin 13.9 g/dL (14.0-18.0); Mean Corpuscular HGB Conc 33 g/dL (31-36); Mean Corpuscular Hemoglobin 32 pg (27-31); Mean Corpuscular Volume 98 fL (80-94); Mean Platelet Volume 7.7 fL (7.4-10.4); Platelet Count 165 10^3/uL (150-450); Red Blood Count 4.36 10^6 /uL (4.18-5.48); Red Cell Distribution Width 16 % (10-15); White Blood Count 3.8 10^3/uL (3.5-10.8)
[2022-01-12 23:42] LABS: ABS Lymphocytes 0.7 10^3/ul (1.0-4.8); ABS Monocytes 0.6 10^3/ul (0-0.8); ABS Neutrophils 2.5 10^3/ul (1.5-7.7); Eosinophil % 0.2 %; Lymphocyte % 17.3 %; Nucleated Red Blood Cells % 0.1
[2022-01-13] MEDS ORDERED: cefTRIAXone 1 gm/50 mL D5W 1 GM/50 ML BAG IV SCH (00:30)
[2022-01-13 00:44] LABS: RBC Morphology Normal (Normal)
[2022-01-13] MEDS: Multivitamins/Minerals TAB PO SCH (08:54)
[2022-01-13 09:12] LABS: Calcium 8.3 mg/dL (8.6-10.3); Magnesium 1.8 mg/dL (1.9-2.7); eGFR CKD-EPI 90.5 (>60)
[2022-01-13] MEDS ORDERED: Remdesivir 100 mg Vial 200 MG in NS 0.9% 250 ml 210 ML IV ONE (09:18)
[2022-01-13] MEDS ORDERED: .Amiodarone 24HR ONLY IV Protocol Order Note IV ONE (23:27)
[2022-01-13] MEDS ORDERED: Amiodarone 150 mg IVPREMIX 150 MG/100 ML BAG IV ONE (23:27)
[2022-01-13] MEDS: Magnesium Sulfate IV 3 GM in NS 0.9% 100 ml BAG 100 ML IVPB ONE (23:30)
[2022-01-13] MEDS ORDERED: Magnesium Sulfate 2 GM IV (Premix) IVPB ONE (23:30)
[2022-01-13] MEDS ORDERED: Amiodarone 360 MG IVPREMIX 360 MG/200 ML BAG IV SCH (23:40)
[2022-01-14] MEDS: Magnesium Sulfate IV 3 GM in NS 0.9% 100 ml BAG 100 ML IVPB ONE (00:02)
[2022-01-14 00:14] LABS: Potassium 4.4 mmol/L (3.5-5.0)
[2022-01-14 00:15] LABS: Calcium 8.2 mg/dL (8.6-10.3); Magnesium 1.7 mg/dL (1.9-2.7); eGFR CKD-EPI 102.3 (>60)
[2022-01-14] MEDS ORDERED: Magnesium Sulfate 1 GM IV 1 GM/100 ML BAG IV ONE (01:00)
[2022-01-14 05:00] LABS: Hematocrit 44 % (42-52); Hemoglobin 14.6 g/dL (14.0-18.0); Mean Corpuscular HGB Conc 33 g/dL (31-36); Mean Corpuscular Hemoglobin 32 pg (27-31); Mean Corpuscular Volume 97 fL (80-94); Platelet Count 161 10^3/uL (150-450); Red Blood Count 4.51 10^6 /uL (4.18-5.48); Red Cell Distribution Width 15 % (10-15); White Blood Count 2.8 10^3/uL (3.5-10.8)
[2022-01-14 05:02] LABS: ABS Lymphocytes 0.9 10^3/ul (1.0-4.8); ABS Monocytes 0.5 10^3/ul (0-0.8); ABS Neutrophils 1.4 10^3/ul (1.5-7.7); Lymphocyte % 33.2 %; Nucleated Red Blood Cells % 0.2
[2022-01-14 05:40] LABS: Blood Urea Nitrogen 19 mg/dL (6-24); CO2 Carbon Dioxide 25 mmol/L (22-32); Calcium 8.1 mg/dL (8.6-10.3); Chloride 100 mmol/L (101-111); Glucose 99 mg/dL (70-100); Platelet Morphology Large; Sodium 131 mmol/L (135-145); eGFR CKD-EPI 109.6 (>60)
[2022-01-14] MEDS ORDERED: Amiodarone 360 MG IVPREMIX 360 MG/200 ML BAG IV SCH (05:40)
[2022-01-14 05:41] LABS: RBC Morphology Normal (Normal)
[2022-01-14 05:45] LABS: Anion Gap 6 mmol/L (2-11)
[2022-01-14 06:51] LABS: Potassium Redraw 4.6 mmol/L (3.5-5.0)
[2022-01-14] MEDS: Multivitamins/Minerals TAB PO SCH (08:17)
[2022-01-14] MEDS: Remdesivir 100 mg Vial 100 MG in NS 0.9% 250 ml 230 ML IV SCH (10:57)
[2022-01-15 05:04] LABS: ABS Lymphocytes 1.2 10^3/ul (1.0-4.8); ABS Monocytes 0.5 10^3/ul (0-0.8); Eosinophil % 0.1 %; Hematocrit 47 % (42-52); Hemoglobin 15.4 g/dL (14.0-18.0); Lymphocyte % 32.7 %; Mean Corpuscular HGB Conc 33 g/dL (31-36); Mean Corpuscular Hemoglobin 32 pg (27-31); Mean Corpuscular Volume 97 fL (80-94); Mean Platelet Volume 8.3 fL (7.4-10.4); Nucleated Red Blood Cells % 0.2; Platelet Count 180 10^3/uL (150-450); Red Blood Count 4.82 10^6 /uL (4.18-5.48); Red Cell Distribution Width 15 % (10-15); White Blood Count 3.8 10^3/uL (3.5-10.8)
[2022-01-15 05:29] LABS: Albumin 3.1 g/dL (3.2-5.2); Albumin/Globulin Ratio 1.1 (1-3); Calcium 8.5 mg/dL (8.6-10.3); Globulin 2.7 g/dL (2-4); Magnesium 1.8 mg/dL (1.9-2.7); Potassium 4.5 mmol/L (3.5-5.0); Total Bilirubin 0.4 mg/dL (0.2-1.0); Total Protein 5.8 g/dL (6.4-8.9); eGFR CKD-EPI 108.1 (>60)
[2022-01-15] MEDS: Remdesivir 100 mg Vial 100 MG in NS 0.9% 250 ml 230 ML IV SCH (08:27)
[2022-01-15] MEDS: Multivitamins/Minerals TAB PO SCH (09:14)
[2022-01-16] MEDS: Multivitamins/Minerals TAB PO SCH (08:49)
[2022-01-16] MEDS ORDERED: Furosemide 20 mg/2 ml IV VIAL IV SLOW PU ONE (11:27)
[2022-01-17 04:59] LABS: Hematocrit 48 % (42-52); Hemoglobin 15.7 g/dL (14.0-18.0); Mean Corpuscular HGB Conc 33 g/dL (31-36); Mean Corpuscular Hemoglobin 32 pg (27-31); Mean Corpuscular Volume 97 fL (80-94); Mean Platelet Volume 8.7 fL (7.4-10.4); Platelet Count 164 10^3/uL (150-450); Red Blood Count 4.89 10^6 /uL (4.18-5.48); Red Cell Distribution Width 15 % (10-15)
[2022-01-17 05:15] LABS: Calcium 8.7 mg/dL (8.6-10.3); Magnesium 1.7 mg/dL (1.9-2.7); Potassium 4.1 mmol/L (3.5-5.0); eGFR CKD-EPI 102.1 (>60)
[2022-01-17] MEDS ORDERED: Magnesium Sulfate 2 gm BAG 2 GM/50 ML BAG IVPB ONE (07:09)
[2022-01-17 07:13] VITALS: BP 98/78
[2022-01-17] MEDS: Multivitamins/Minerals TAB PO SCH (08:37)
== END 2022-01-17 13:40 | disposition home or self-care (01) | DRG 291 ==
LOC: ED 07:03 → SUATTDRO 14:00 → EDHOLD 14:00 → MEDTELE 18:20 → ICU 01-14 00:51 → MED 01-15 17:24
PROVIDERS: ADMIT Internal Medicine; ATTEND Internal Medicine

== ENCOUNTER 2022-08-12 15:02 | Inpatient (IN) ==
[2022-08-12 16:39] LABS: ABS Monocytes 0.9 10^3/ul (0-0.8); ABS Neutrophils 9.1 10^3/ul (1.5-7.7); Eosinophil % 0.4 %; Hematocrit 38 % (42-52); Hemoglobin 12.5 g/dL (14.0-18.0); Lymphocyte % 8.9 %; Mean Corpuscular HGB Conc 33 g/dL (31-36); Mean Corpuscular Hemoglobin 33 pg (27-31); Mean Corpuscular Volume 101 fL (80-94); Mean Platelet Volume 7.7 fL (7.4-10.4); Nucleated Red Blood Cells % 0.1; Platelet Count 192 10^3/uL (150-450); Red Cell Distribution Width 15 % (10-15); White Blood Count 11.1 10^3/uL (3.5-10.8)
[2022-08-12 17:32] LABS: Potassium 4.8 mmol/L (3.5-5.0)
[2022-08-12 17:33] LABS: Albumin 4.1 g/dL (3.2-5.2); Albumin/Globulin Ratio 1.5 (1-3); Calcium 9.6 mg/dL (8.6-10.3); Globulin 2.7 g/dL (2-4); Magnesium 2.3 mg/dL (1.9-2.7); Total Bilirubin 0.5 mg/dL (0.2-1.0); Total Protein 6.8 g/dL (6.4-8.9)
[2022-08-12 18:05] LABS: High Sensitivity Troponin 1 Hr 368 pg/mL (<20)
[2022-08-12] MEDS ORDERED: Metoprolol Tartrate 5 mg VIAL 5 ml VIAL (1 mg/ml) IV PRN (19:25)
[2022-08-13 05:48] LABS: ABS Eosinophils 0.1 10^3/ul (0-0.6); ABS Lymphocytes 1.8 10^3/ul (1.0-4.8); ABS Monocytes 0.9 10^3/ul (0-0.8); ABS Neutrophils 4.8 10^3/ul (1.5-7.7); Eosinophil % 1.6 %; Hematocrit 35 % (42-52); Hemoglobin 11.6 g/dL (14.0-18.0); Lymphocyte % 23.3 %; Mean Corpuscular HGB Conc 33 g/dL (31-36); Mean Corpuscular Hemoglobin 33 pg (27-31); Mean Corpuscular Volume 101 fL (80-94); Mean Platelet Volume 7.5 fL (7.4-10.4); Nucleated Red Blood Cells % 0.1; Platelet Count 175 10^3/uL (150-450); Red Blood Count 3.47 10^6 /uL (4.18-5.48); Red Cell Distribution Width 15 % (10-15); White Blood Count 7.6 10^3/uL (3.5-10.8)
[2022-08-13 06:17] LABS: Calcium 9.3 mg/dL (8.6-10.3); Potassium 4.6 mmol/L (3.5-5.0); eGFR CKD-EPI 75.8 (>60)
[2022-08-13 15:58] LABS: Calcium 9.4 mg/dL (8.6-10.3); Potassium 4.4 mmol/L (3.5-5.0); eGFR CKD-EPI 58.1 (>60)
[2022-08-14 06:16] LABS: ABS Eosinophils 0.3 10^3/ul (0-0.6); ABS Lymphocytes 1.6 10^3/ul (1.0-4.8); ABS Monocytes 0.8 10^3/ul (0-0.8); ABS Neutrophils 3.5 10^3/ul (1.5-7.7); Hematocrit 35 % (42-52); Hemoglobin 11.9 g/dL (14.0-18.0); Lymphocyte % 26.2 %; Mean Corpuscular HGB Conc 34 g/dL (31-36); Mean Corpuscular Hemoglobin 34 pg (27-31); Mean Corpuscular Volume 101 fL (80-94); Mean Platelet Volume 7.5 fL (7.4-10.4); Nucleated Red Blood Cells % 0.1; Platelet Count 175 10^3/uL (150-450); Red Blood Count 3.52 10^6 /uL (4.18-5.48); Red Cell Distribution Width 15 % (10-15); White Blood Count 6.3 10^3/uL (3.5-10.8)
[2022-08-14 07:15] LABS: Calcium 9.2 mg/dL (8.6-10.3); eGFR CKD-EPI 69.1 (>60)
[2022-08-15 06:12] LABS: ABS Eosinophils 0.2 10^3/ul (0-0.6); ABS Lymphocytes 1.2 10^3/ul (1.0-4.8); ABS Monocytes 0.8 10^3/ul (0-0.8); ABS Neutrophils 3.8 10^3/ul (1.5-7.7); Eosinophil % 3.7 %; Hematocrit 36 % (42-52); Hemoglobin 11.8 g/dL (14.0-18.0); Lymphocyte % 20.4 %; Mean Corpuscular HGB Conc 33 g/dL (31-36); Mean Corpuscular Hemoglobin 34 pg (27-31); Mean Corpuscular Volume 102 fL (80-94); Mean Platelet Volume 7.8 fL (7.4-10.4); Nucleated Red Blood Cells % 0.2; Platelet Count 162 10^3/uL (150-450); Red Blood Count 3.51 10^6 /uL (4.18-5.48); Red Cell Distribution Width 15 % (10-15)
[2022-08-15 06:28] LABS: Calcium 9.2 mg/dL (8.6-10.3); Magnesium 2.1 mg/dL (1.9-2.7); Potassium 4.4 mmol/L (3.5-5.0); eGFR CKD-EPI 95.8 (>60)
[2022-08-15] MEDS ORDERED: Propofol 10 MG/ML 50 ML BTL ONE (14:00)
[2022-08-15] MEDS ORDERED: Midazolam 2 mg/2 ml VIAL 1 mg/ml 2 ml VIAL (2 mg) ONE (14:04)
[2022-08-15] MEDS ORDERED: Succinylcholine 200 mg VIAL 20 mg/ml 10 ml VIAL (200 mg) ONE (14:05)
[2022-08-16 05:56] LABS: ABS Eosinophils 0.2 10^3/ul (0-0.6); ABS Lymphocytes 1.3 10^3/ul (1.0-4.8); ABS Monocytes 0.6 10^3/ul (0-0.8); ABS Neutrophils 3.6 10^3/ul (1.5-7.7); Eosinophil % 3.7 %; Hematocrit 37 % (42-52); Hemoglobin 12.2 g/dL (14.0-18.0); Lymphocyte % 23.2 %; Mean Corpuscular HGB Conc 33 g/dL (31-36); Mean Corpuscular Hemoglobin 34 pg (27-31); Mean Corpuscular Volume 101 fL (80-94); Mean Platelet Volume 7.8 fL (7.4-10.4); Platelet Count 167 10^3/uL (150-450); Red Blood Count 3.64 10^6 /uL (4.18-5.48); Red Cell Distribution Width 15 % (10-15); White Blood Count 5.7 10^3/uL (3.5-10.8)
[2022-08-16 06:22] LABS: Magnesium 2.1 mg/dL (1.9-2.7)
[2022-08-16 12:05] VITALS: BP 91/57
[2022-08-16 12:29] LABS: Calcium 9.1 mg/dL (8.6-10.3); Potassium 4.6 mmol/L (3.5-5.0)
[2022-08-16 12:35] LABS: eGFR CKD-EPI 91.1 (>60)
== END 2022-08-16 15:00 | disposition home or self-care (01) | DRG 309 ==
LOC: EDHOLD 15:02 → ED 15:02 → MEDTELE 20:39 → SUATTDRO 08-13 16:00
PROVIDERS: ADMIT Hospitalist; ATTEND Internal Medicine
PROC: CARDVER (ICD-10-PCS; 2022-08-15 14:30)

== ENCOUNTER 2023-07-28 10:34 | Observation (INO) ==
[2023-07-28 11:36] LABS: ABS Eosinophils 0.3 10^3/uL (0.0-0.5); ABS Lymphocytes 1.7 10^3/uL (1.0-4.8); ABS Monocytes 1.1 10^3/uL (0.0-1.1); ABS Neutrophils 7.7 10^3/uL (1.5-7.6); ABS Nucleated RBC 0.02 10^3/ul; Eosinophil % 3.1 %; Hematocrit 42.8 % (38-53); Hemoglobin 14.7 g/dL (13.2-16.3); Mean Corpuscular Hemoglobin 33.9 pg (27-33); Mean Corpuscular Hgb Conc 34.4 g/dL (31-36); Mean Corpuscular Volume 98.7 fL (80-97); Mean Platelet Volume 7.6 fL (7.5-11.2); Nucleated Red Blood Cells % 0.2 %/100WBC (0.0-0.8); Platelet Count 203 10^3/uL (150-450); Red Blood Count 4.34 10^6/uL (4.06-5.63); Red Cell Distribution Width 13.4 % (12-17); White Blood Count 10.8 10^3/uL (3.6-10.2)
[2023-07-28 11:48] LABS: INR 1.14 (0.83-1.13)
[2023-07-28 11:59] LABS: Albumin 4.4 g/dL (3.2-5.2); Albumin/Globulin Ratio 1.3 (1-3); Calcium 10.3 mg/dL (8.6-10.3); Creatinine, Serum 0.92 mg/dL (0.67-1.17); Globulin 3.5 g/dL (2-4); Total Bilirubin 0.4 mg/dL (0.2-1.0); Total Protein 7.9 g/dL (6.4-8.9); eGFR CKD-EPI 96.4 (>60)
[2023-07-28] MEDS ORDERED: Furosemide 40 mg/4 ml IV VIAL IV SLOW PU ONE (12:54)
[2023-07-28 13:01] LABS: C Reactive Protein 1.76 mg/L (<8.01); Magnesium 1.9 mg/dL (1.9-2.7); Phosphorus 4.3 mg/dL (2.5-5.0)
[2023-07-28 13:07] LABS: High Sensitivity Troponin 1 Hr 7 pg/mL (<20)
[2023-07-29 06:17] LABS: ABS Eosinophils 0.3 10^3/uL (0.0-0.5); ABS Lymphocytes 1.8 10^3/uL (1.0-4.8); ABS Monocytes 0.7 10^3/uL (0.0-1.1); ABS Neutrophils 3.9 10^3/uL (1.5-7.6); Eosinophil % 4.1 %; Hematocrit 40.8 % (38-53); Hemoglobin 13.9 g/dL (13.2-16.3); Lymphocyte % 26.4 %; Mean Corpuscular Hemoglobin 33.4 pg (27-33); Mean Corpuscular Hgb Conc 33.9 g/dL (31-36); Mean Corpuscular Volume 98.5 fL (80-97); Mean Platelet Volume 7.8 fL (7.5-11.2); Platelet Count 156 10^3/uL (150-450); Red Blood Count 4.15 10^6/uL (4.06-5.63); Red Cell Distribution Width 13.3 % (12-17); White Blood Count 6.7 10^3/uL (3.6-10.2)
[2023-07-29 06:38] LABS: Calcium 9.5 mg/dL (8.6-10.3); Creatinine, Serum 0.9 mg/dL (0.67-1.17); Magnesium 1.9 mg/dL (1.9-2.7); Potassium 3.6 mmol/L (3.5-5.0)
[2023-07-29] MEDS ORDERED: Bumetanide IV 0.25 MG/ML 4 ml VIAL (1 mg) IV SLOW PU SCH (09:00)
[2023-07-29 09:25] LABS: Urine Appearance Clear; Urine Bilirubin Negative (Negative); Urine Blood Negative (Negative); Urine Color Yellow; Urine Glucose Negative (Negative); Urine Ketones Negative (Negative); Urine Nitrite Negative (Negative); Urine Protein Negative (Negative); Urine Specific Gravity 1.011 (1.002-1.030); Urine Urobilinogen Negative (Negative)
[2023-07-29] MEDS ORDERED: Potassium Chlor 20 meq TAB.ER PO ONE (11:04)
[2023-07-29 14:46] VITALS: BP 115/77
== END 2023-07-29 16:34 | disposition home or self-care (01) ==
LOC: EDHOLD 10:34 → ED 10:34 → MEDTELE 16:35
PROVIDERS: ADMIT Hospitalist; ATTEND Hospitalist

== ENCOUNTER 2023-11-21 16:39 | Inpatient (IN) ==
[2023-11-21 17:49] LABS: ABS Eosinophils 0.2 10^3/uL (0.0-0.5); ABS Lymphocytes 1.2 10^3/uL (1.0-4.8); ABS Monocytes 0.8 10^3/uL (0.0-1.1); ABS Neutrophils 6.1 10^3/uL (1.5-7.6); ABS Nucleated RBC 0.01 10^3/ul; Eosinophil % 2.9 %; Hematocrit 39.5 % (38-53); Hemoglobin 13.6 g/dL (13.2-16.3); Lymphocyte % 14.3 %; Mean Corpuscular Hemoglobin 33.3 pg (27-33); Mean Corpuscular Hgb Conc 34.4 g/dL (31-36); Mean Corpuscular Volume 96.9 fL (80-97); Mean Platelet Volume 7.7 fL (7.5-11.2); Nucleated Red Blood Cells % 0.1 %/100WBC (0.0-0.8); Platelet Count 200 10^3/uL (150-450); Red Blood Count 4.08 10^6/uL (4.06-5.63); Red Cell Distribution Width 13.9 % (12-17); White Blood Count 8.4 10^3/uL (3.6-10.2)
[2023-11-21 18:29] LABS: Albumin 4.3 g/dL (3.2-5.2); Albumin/Globulin Ratio 1.3 (1-3); C Reactive Protein 6.71 mg/L (<8.01); Calcium 9.7 mg/dL (8.6-10.3); Creatinine, Serum 1.08 mg/dL (0.67-1.17); Globulin 3.4 g/dL (2-4); Potassium 3.8 mmol/L (3.5-5.0); Total Bilirubin 0.3 mg/dL (0.2-1.0); Total Protein 7.7 g/dL (6.4-8.9); eGFR CKD-EPI 79.5 (>60)
[2023-11-21] MEDS: Lactated Ringers 1000 ml BAG 1,000 ML IV ONE (19:11)
[2023-11-21] MEDS: Iodixanol (CONTRAST) 320 MG/ML 100 ML SDV IV ONE (20:24)
[2023-11-21] MEDS: Morphine 4 MG/ML VIAL (1 ml) IV ONE (21:42)
[2023-11-21] MEDS: fentaNYL 100 mcg/2 ml 50 MCG/ML VIAL IV SLOW PU ONE ×2 (22:06→22:16)
[2023-11-21 22:44] LABS: Urine Appearance Clear; Urine Bilirubin Negative (Negative); Urine Blood Negative (Negative); Urine Color Light-Yellow; Urine Glucose 3+ (>=300 mg/dL) (Negative); Urine Ketones Negative (Negative); Urine Nitrite Negative (Negative); Urine Protein Negative (Negative); Urine Specific Gravity 1.038 (1.002-1.030); Urine Urobilinogen Negative (Negative); Urine pH 7.5 (5.0-8.0)
[2023-11-22] MEDS: Pantoprazole VIAL 40 MG VIAL IV SCH (00:35)
[2023-11-22] MEDS: Metoprolol Tartrate 5 mg VIAL 5 ml VIAL (1 mg/ml) IV SCH (00:36)
[2023-11-22] MEDS: Ondansetron 4 mg VIAL 2 MG/ML 2 ml VIAL IV PRN (04:27)
[2023-11-22 06:21] LABS: ABS Eosinophils 0.1 10^3/uL (0.0-0.5); ABS Lymphocytes 1.2 10^3/uL (1.0-4.8); ABS Neutrophils 9.5 10^3/uL (1.5-7.6); ABS Nucleated RBC 0.01 10^3/ul; Eosinophil % 0.7 %; Hematocrit 41.8 % (38-53); Hemoglobin 13.9 g/dL (13.2-16.3); Lymphocyte % 10.1 %; Mean Corpuscular Hemoglobin 32.6 pg (27-33); Mean Corpuscular Hgb Conc 33.2 g/dL (31-36); Mean Corpuscular Volume 98.2 fL (80-97); Mean Platelet Volume 7.5 fL (7.5-11.2); Nucleated Red Blood Cells % 0.1 %/100WBC (0.0-0.8); Platelet Count 207 10^3/uL (150-450); Red Blood Count 4.25 10^6/uL (4.06-5.63); Red Cell Distribution Width 14.4 % (12-17); White Blood Count 11.9 10^3/uL (3.6-10.2)
[2023-11-22 06:33] LABS: Creatinine, Serum 0.92 mg/dL (0.67-1.17); Magnesium 2.5 mg/dL (1.9-2.7); Potassium 3.7 mmol/L (3.5-5.0); eGFR CKD-EPI 96.4 (>60)
[2023-11-22] MEDS: Lactated Ringers 1000 ml BAG 1,000 ML IV SCH ×3 (08:39→17:23)
[2023-11-22] MEDS: Morphine 2 MG/ML SYRINGE IV PRN (11:45)
[2023-11-22 15:42] LABS: ABS Eosinophils 0.2 10^3/uL (0.0-0.5); ABS Lymphocytes 1.2 10^3/uL (1.0-4.8); ABS Monocytes 0.9 10^3/uL (0.0-1.1); ABS Neutrophils 5.9 10^3/uL (1.5-7.6); ABS Nucleated RBC 0.01 10^3/ul; Eosinophil % 2.5 %; Hematocrit 40.7 % (38-53); Hemoglobin 13.7 g/dL (13.2-16.3); Lymphocyte % 14.8 %; Mean Corpuscular Hemoglobin 33.1 pg (27-33); Mean Corpuscular Hgb Conc 33.7 g/dL (31-36); Mean Corpuscular Volume 98.3 fL (80-97); Mean Platelet Volume 7.6 fL (7.5-11.2); Nucleated Red Blood Cells % 0.1 %/100WBC (0.0-0.8); Platelet Count 173 10^3/uL (150-450); Red Blood Count 4.14 10^6/uL (4.06-5.63); Red Cell Distribution Width 14.4 % (12-17); White Blood Count 8.2 10^3/uL (3.6-10.2)
[2023-11-22] MEDS ORDERED: Saline NASAL SPRAY 0.65% BTL BOTH NARES PRN (23:40)
[2023-11-23] MEDS: Acetaminophen IV 1 GM/100ML 1,000 MG/100 ML BAG IV PRN (05:40)
[2023-11-23 05:50] LABS: ABS Eosinophils 0.3 10^3/uL (0.0-0.5); ABS Lymphocytes 1.2 10^3/uL (1.0-4.8); ABS Monocytes 0.8 10^3/uL (0.0-1.1); ABS Neutrophils 3.8 10^3/uL (1.5-7.6); ABS Nucleated RBC 0.01 10^3/ul; Eosinophil % 4.3 %; Hematocrit 37.2 % (38-53); Hemoglobin 12.5 g/dL (13.2-16.3); Lymphocyte % 20.3 %; Mean Corpuscular Hemoglobin 32.8 pg (27-33); Mean Corpuscular Hgb Conc 33.7 g/dL (31-36); Mean Corpuscular Volume 97.3 fL (80-97); Mean Platelet Volume 7.6 fL (7.5-11.2); Nucleated Red Blood Cells % 0.2 %/100WBC (0.0-0.8); Platelet Count 159 10^3/uL (150-450); Red Blood Count 3.82 10^6/uL (4.06-5.63); Red Cell Distribution Width 14.1 % (12-17); White Blood Count 6.1 10^3/uL (3.6-10.2)
[2023-11-23 06:06] LABS: Creatinine, Serum 0.92 mg/dL (0.67-1.17); Potassium 3.5 mmol/L (3.5-5.0); eGFR CKD-EPI 96.4 (>60)
[2023-11-23] MEDS: Lidocaine 2% JELLY 6 ML Topical TOPICAL ONE (13:23)
[2023-11-23] MEDS: Benzocaine/Menthol LOZ MT PRN (18:12)
[2023-11-24] MEDS ORDERED: Lorazepam PYXIS KEY PRN (03:09)
[2023-11-24] MEDS: LORazepam 2 mg VIAL 1 ml ONE (03:15)
[2023-11-24] MEDS: LORazepam 2 mg VIAL 1 ml IV PUSH ONE (03:15)
[2023-11-24 06:36] LABS: ABS Eosinophils 0.2 10^3/uL (0.0-0.5); ABS Lymphocytes 1.4 10^3/uL (1.0-4.8); ABS Monocytes 0.6 10^3/uL (0.0-1.1); ABS Neutrophils 3.1 10^3/uL (1.5-7.6); ABS Nucleated RBC 0.01 10^3/ul; Eosinophil % 3.6 %; Hematocrit 37.1 % (38-53); Hemoglobin 12.6 g/dL (13.2-16.3); Lymphocyte % 26.8 %; Mean Corpuscular Hgb Conc 34.1 g/dL (31-36); Mean Platelet Volume 7.8 fL (7.5-11.2); Nucleated Red Blood Cells % 0.2 %/100WBC (0.0-0.8); Platelet Count 166 10^3/uL (150-450); Red Blood Count 3.83 10^6/uL (4.06-5.63); Red Cell Distribution Width 13.7 % (12-17); White Blood Count 5.2 10^3/uL (3.6-10.2)
[2023-11-24] MEDS: LORazepam 2 mg VIAL 1 ml IV PUSH SCH (11:52)
[2023-11-24] MEDS: Thiamine 100 MG/ML 2 ml VIAL (200 mg) IM ONE (11:55)
[2023-11-24] MEDS: Diazepam IV 0-15 mg dose for WAM protocol IV SCH (15:35)
[2023-11-24] MEDS: diazePAM INJ CARPUJECT 5 MG/ML SYRINGE IV SCH (15:38)
[2023-11-25 06:30] LABS: ABS Eosinophils 0.1 10^3/uL (0.0-0.5); ABS Lymphocytes 1.4 10^3/uL (1.0-4.8); ABS Monocytes 0.7 10^3/uL (0.0-1.1); ABS Neutrophils 3.7 10^3/uL (1.5-7.6); ABS Nucleated RBC 0.01 10^3/ul; Eosinophil % 2.5 %; Lymphocyte % 23.4 %; Mean Corpuscular Hemoglobin 32.8 pg (27-33); Mean Corpuscular Hgb Conc 34.1 g/dL (31-36); Mean Corpuscular Volume 96.1 fL (80-97); Mean Platelet Volume 7.7 fL (7.5-11.2); Nucleated Red Blood Cells % 0.1 %/100WBC (0.0-0.8); Platelet Count 152 10^3/uL (150-450); Red Blood Count 3.65 10^6/uL (4.06-5.63); Red Cell Distribution Width 13.4 % (12-17); White Blood Count 5.9 10^3/uL (3.6-10.2)
[2023-11-25 06:49] LABS: Calcium 8.7 mg/dL (8.6-10.3); Creatinine, Serum 0.87 mg/dL (0.67-1.17); Magnesium 1.9 mg/dL (1.9-2.7); Potassium 3.3 mmol/L (3.5-5.0)
[2023-11-25] MEDS: KCL 20 MEQ/100 ML IVPREMIX 20 MEQ/100 ML BAG IV SCH (11:18)
[2023-11-25] MEDS: Potassium Chlor 20 meq TAB.ER PO ONE (11:27)
[2023-11-25] MEDS: diazePAM INJ CARPUJECT 5 MG/ML SYRINGE IV SCH (20:16)
[2023-11-26 06:26] LABS: ABS Eosinophils 0.2 10^3/uL (0.0-0.5); ABS Lymphocytes 1.3 10^3/uL (1.0-4.8); ABS Monocytes 0.7 10^3/uL (0.0-1.1); ABS Neutrophils 3.2 10^3/uL (1.5-7.6); Eosinophil % 4.1 %; Hematocrit 35.8 % (38-53); Hemoglobin 12.1 g/dL (13.2-16.3); Lymphocyte % 23.4 %; Mean Corpuscular Hemoglobin 32.5 pg (27-33); Mean Corpuscular Hgb Conc 33.8 g/dL (31-36); Mean Corpuscular Volume 96.2 fL (80-97); Mean Platelet Volume 7.6 fL (7.5-11.2); Platelet Count 180 10^3/uL (150-450); Red Blood Count 3.73 10^6/uL (4.06-5.63); Red Cell Distribution Width 13.6 % (12-17); White Blood Count 5.5 10^3/uL (3.6-10.2)
[2023-11-26 07:25] LABS: Calcium 8.7 mg/dL (8.6-10.3); Creatinine, Serum 0.77 mg/dL (0.67-1.17); Potassium 4.1 mmol/L (3.5-5.0); eGFR CKD-EPI 103.8 (>60)
[2023-11-27 06:15] LABS: ABS Eosinophils 0.2 10^3/uL (0.0-0.5); ABS Lymphocytes 1.4 10^3/uL (1.0-4.8); ABS Monocytes 0.7 10^3/uL (0.0-1.1); ABS Neutrophils 3.4 10^3/uL (1.5-7.6); Eosinophil % 3.8 %; Hematocrit 35.5 % (38-53); Hemoglobin 11.9 g/dL (13.2-16.3); Lymphocyte % 24.5 %; Mean Corpuscular Hemoglobin 32.6 pg (27-33); Mean Corpuscular Hgb Conc 33.5 g/dL (31-36); Mean Corpuscular Volume 97.4 fL (80-97); Mean Platelet Volume 7.8 fL (7.5-11.2); Platelet Count 173 10^3/uL (150-450); Red Blood Count 3.65 10^6/uL (4.06-5.63); Red Cell Distribution Width 13.3 % (12-17); White Blood Count 5.8 10^3/uL (3.6-10.2)
[2023-11-27 06:41] LABS: Calcium 8.9 mg/dL (8.6-10.3); Creatinine, Serum 0.96 mg/dL (0.67-1.17); Potassium 4.6 mmol/L (3.5-5.0); eGFR CKD-EPI 91.6 (>60)
[2023-11-27] MEDS: Iodixanol (CONTRAST) 320 MG/ML 100 ML SDV IV ONE (14:02)
[2023-11-27] MEDS: Morphine 2 MG/ML SYRINGE IV PRN (14:29)
[2023-11-28 10:25] VITALS: BP 120/80
== END 2023-11-28 15:00 | disposition home or self-care (01) | DRG 394 ==
LOC: EDHOLD 16:39 → ED 16:39 → SUATTDRO 22:29 → OBSVTOIN 22:29 → MEDTELE 11-22 00:31 → SSU 11-22 21:08
PROVIDERS: ADMIT Internal Medicine; ATTEND Internal Medicine

== ENCOUNTER 2024-04-13 19:57 | Inpatient (IN) ==
[2024-04-13] MEDS: Ondansetron 4 mg VIAL 2 MG/ML 2 ml VIAL IV ONE (20:54)
[2024-04-13] MEDS: Morphine 2 MG/ML SYRINGE IV ONE (20:54)
[2024-04-13 20:55] LABS: INR 1.06 (0.83-1.13)
[2024-04-13] MEDS: Lactated Ringers 1000 ml BAG 1,000 ML IV SCH (20:57)
[2024-04-13 21:06] LABS: Hematocrit 46.8 % (38-53); Hemoglobin 16.2 g/dL (13.2-16.3); Mean Corpuscular Hemoglobin 33.9 pg (27-33); Mean Corpuscular Hgb Conc 34.5 g/dL (31-36); Mean Corpuscular Volume 98.1 fL (80-97); Red Blood Count 4.77 10^6/uL (4.06-5.63); Red Cell Distribution Width 13.3 % (12-17); White Blood Count 20.4 10^3/uL (3.6-10.2)
[2024-04-13 21:10] LABS: High Sens Troponin Baseline 10 pg/mL (<20)
[2024-04-13 21:29] LABS: ALT 20 U/L (7-52); Albumin 5.4 g/dL (3.2-5.2); Albumin/Globulin Ratio 1.2 (1-3); Alkaline Phosphatase 68 U/L (35-149); Anion Gap 14 mmol/L (2-16); Blood Urea Nitrogen 21 mg/dL (6-24); CO2 Carbon Dioxide 28 mmol/L (22-32); Calcium 11.1 mg/dL (8.6-10.3); Chloride 90 mmol/L (101-111); Creatinine, Serum 1.46 mg/dL (0.67-1.17); Globulin 4.4 g/dL (2-4); Glucose 130 mg/dL (70-100); Sodium 132 mmol/L (135-145); Total Bilirubin 0.4 mg/dL (0.2-1.0); Total Protein 9.8 g/dL (6.4-8.9); eGFR CKD-EPI 55.1 (>60)
[2024-04-13 21:44] LABS: ABS Eosinophils 0.3 10^3/uL (0.0-0.5); ABS Lymphocytes 1.2 10^3/uL (1.0-4.8); ABS Neutrophils 16.9 10^3/uL (1.5-7.6); ABS Nucleated RBC 0.02 10^3/ul; Eosinophil % 1.6 %; Lymphocyte % 5.8 %; Mean Platelet Volume 8.7 fL (7.5-11.2); Nucleated Red Blood Cells % 0.1 %/100WBC (0.0-0.8); Platelet Count 272 10^3/uL (150-450)
[2024-04-13 22:05] LABS: High Sensitivity Troponin 1 Hr 9 pg/mL (<20)
[2024-04-13] MEDS: Iodixanol (CONTRAST) 320 MG/ML 100 ML SDV IV ONE (22:51)
[2024-04-14] MEDS: Morphine 4 MG/ML VIAL (1 ml) IV ONE (00:05)
[2024-04-14 01:02] LABS: Potassium Redraw 3.8 mmol/L (3.5-5.0)
[2024-04-14] MEDS ORDERED: Ondansetron 4 mg VIAL 2 MG/ML 2 ml VIAL IV PRN (02:30)
[2024-04-14] MEDS: Ondansetron 4 mg VIAL 2 MG/ML 2 ml VIAL IV PRN (02:47)
[2024-04-14] MEDS ORDERED: Palonosetron 0.25 MG in NS 0.9% 50 ML 50 ML IVPB PRN (03:11)
[2024-04-14] MEDS ORDERED: Lidocaine 2% JELLY 6 ML Topical TOPICAL ONE (03:31)
[2024-04-14] MEDS: Lidocaine 4% GEL 10 GM TUBE TOPICAL ONE (03:43)
[2024-04-14] MEDS ORDERED: PALONOSETRON HCL 0.05 MG/ML (0.25 MG) SYRINGE (0.05 MG/ML) IV PRN (04:03)
[2024-04-14 06:53] LABS: ABS Eosinophils 0.1 10^3/uL (0.0-0.5); ABS Lymphocytes 1.2 10^3/uL (1.0-4.8); ABS Monocytes 0.9 10^3/uL (0.0-1.1); ABS Neutrophils 6.4 10^3/uL (1.5-7.6); ABS Nucleated RBC 0.01 10^3/ul; Eosinophil % 1.3 %; Hematocrit 39.8 % (38-53); Hemoglobin 13.7 g/dL (13.2-16.3); Lymphocyte % 14.3 %; Mean Corpuscular Hemoglobin 33.9 pg (27-33); Mean Corpuscular Hgb Conc 34.4 g/dL (31-36); Mean Corpuscular Volume 98.4 fL (80-97); Nucleated Red Blood Cells % 0.1 %/100WBC (0.0-0.8); Platelet Count 174 10^3/uL (150-450); Red Blood Count 4.04 10^6/uL (4.06-5.63); Red Cell Distribution Width 13.5 % (12-17); White Blood Count 8.7 10^3/uL (3.6-10.2)
[2024-04-14 07:54] LABS: ALT 12 U/L (7-52); Albumin/Globulin Ratio 1.2 (1-3); Alkaline Phosphatase 66 U/L (35-149); Anion Gap 11 mmol/L (2-16); Blood Urea Nitrogen 26 mg/dL (6-24); CO2 Carbon Dioxide 29 mmol/L (22-32); Calcium 9.6 mg/dL (8.6-10.3); Chloride 91 mmol/L (101-111); Globulin 3.3 g/dL (2-4); Glucose 98 mg/dL (70-100); Sodium 131 mmol/L (135-145); Total Protein 7.3 g/dL (6.4-8.9); eGFR CKD-EPI 53.3 (>60)
[2024-04-14 10:23] LABS: Potassium Redraw 3.7 mmol/L (3.5-5.0)
[2024-04-14] MEDS: Lactated Ringers 1000 ml BAG 1,000 ML IV SCH (16:13)
[2024-04-14] MEDS: Morphine 4 MG/ML VIAL (1 ml) IV PRN (16:17)
[2024-04-14] MEDS: Diatrizoate Meg/Sod(CONTRAST) 30 ML ORAL.SOLN PO ONE (17:45)
[2024-04-14] MEDS ORDERED: Enoxaparin 40 MG/0.4 ML SYR SUBCUT SCH (18:00)
[2024-04-14] MEDS ORDERED: Sotalol 120 mg TAB (NF) PO SCH (21:00)
[2024-04-14] MEDS: Enoxaparin 40 MG/0.4 ML SYR SUBCUT SCH (21:37)
[2024-04-15 05:48] LABS: ABS Eosinophils 0.2 10^3/uL (0.0-0.5); ABS Lymphocytes 1.5 10^3/uL (1.0-4.8); ABS Monocytes 0.6 10^3/uL (0.0-1.1); ABS Neutrophils 2.9 10^3/uL (1.5-7.6); Eosinophil % 4.2 %; Hematocrit 37.1 % (38-53); Hemoglobin 12.5 g/dL (13.2-16.3); Lymphocyte % 28.2 %; Mean Corpuscular Hemoglobin 32.9 pg (27-33); Mean Corpuscular Hgb Conc 33.7 g/dL (31-36); Mean Corpuscular Volume 97.6 fL (80-97); Mean Platelet Volume 8.1 fL (7.5-11.2); Platelet Count 167 10^3/uL (150-450); Red Cell Distribution Width 13.4 % (12-17); White Blood Count 5.2 10^3/uL (3.6-10.2)
[2024-04-15 06:55] LABS: Calcium 9.5 mg/dL (8.6-10.3); Creatinine, Serum 1.07 mg/dL (0.67-1.17); Phosphorus 2.8 mg/dL (2.5-5.0); Potassium 3.5 mmol/L (3.5-5.0); eGFR CKD-EPI 79.9 (>60)
[2024-04-15] MEDS ORDERED: D5LR 1000 ml BAG 1,000 ML IV SCH (18:00)
[2024-04-15] MEDS: D5LR 1000 ml BAG 1,000 ML IV SCH (18:27)
[2024-04-15] MEDS: Benzocaine/Menthol LOZ MT PRN (20:02)
[2024-04-16 06:16] LABS: ABS Eosinophils 0.2 10^3/uL (0.0-0.5); ABS Lymphocytes 1.5 10^3/uL (1.0-4.8); ABS Monocytes 0.8 10^3/uL (0.0-1.1); ABS Neutrophils 3.7 10^3/uL (1.5-7.6); ABS Nucleated RBC 0.01 10^3/ul; Eosinophil % 3.1 %; Hematocrit 38.2 % (38-53); Hemoglobin 13.4 g/dL (13.2-16.3); Lymphocyte % 24.7 %; Mean Corpuscular Volume 97.1 fL (80-97); Mean Platelet Volume 8.1 fL (7.5-11.2); Nucleated Red Blood Cells % 0.1 %/100WBC (0.0-0.8); Platelet Count 182 10^3/uL (150-450); Red Blood Count 3.93 10^6/uL (4.06-5.63); Red Cell Distribution Width 13.2 % (12-17); White Blood Count 6.1 10^3/uL (3.6-10.2)
[2024-04-16 06:33] LABS: Calcium 9.9 mg/dL (8.6-10.3); Creatinine, Serum 0.98 mg/dL (0.67-1.17); Magnesium 2.2 mg/dL (1.9-2.7); eGFR CKD-EPI 88.8 (>60)
[2024-04-16] MEDS: KCL 20 MEQ/100 ML IVPREMIX 20 MEQ/100 ML BAG IV SCH (08:31)
[2024-04-16] MEDS: Acetaminophen IV 1 GM/100ML 1,000 MG/100 ML BAG IV ONE (23:50)
[2024-04-17 05:23] LABS: ABS Eosinophils 0.2 10^3/uL (0.0-0.5); ABS Lymphocytes 1.5 10^3/uL (1.0-4.8); ABS Monocytes 0.6 10^3/uL (0.0-1.1); ABS Neutrophils 2.6 10^3/uL (1.5-7.6); Eosinophil % 3.6 %; Hemoglobin 11.6 g/dL (13.2-16.3); Mean Corpuscular Hemoglobin 34.1 pg (27-33); Mean Corpuscular Hgb Conc 35.4 g/dL (31-36); Mean Corpuscular Volume 96.5 fL (80-97); Platelet Count 152 10^3/uL (150-450); Red Blood Count 3.41 10^6/uL (4.06-5.63); Red Cell Distribution Width 12.8 % (12-17); White Blood Count 4.9 10^3/uL (3.6-10.2)
[2024-04-17 05:44] LABS: Calcium 8.9 mg/dL (8.6-10.3); Creatinine, Serum 0.9 mg/dL (0.67-1.17); eGFR CKD-EPI 98.4 (>60)
[2024-04-17] MEDS: Potassium Chlor 20 meq TAB.ER PO ONE ×2 (09:44→13:10)
[2024-04-18 06:32] LABS: Anion Gap 13 mmol/L (2-16); Blood Urea Nitrogen 7 mg/dL (6-24); CO2 Carbon Dioxide 21 mmol/L (22-32); Calcium 8.7 mg/dL (8.6-10.3); Chloride 102 mmol/L (101-111); Creatinine, Serum 0.84 mg/dL (0.67-1.17); Glucose 96 mg/dL (70-100); Sodium 136 mmol/L (135-145); eGFR CKD-EPI 100.5 (>60)
[2024-04-18 06:49] LABS: Hematocrit 35.4 % (38-53); Hemoglobin 11.9 g/dL (13.2-16.3); Mean Corpuscular Hemoglobin 34.5 pg (27-33); Mean Corpuscular Hgb Conc 33.5 g/dL (31-36); Mean Platelet Volume 9.1 fL (7.5-11.2); Platelet Count 173 10^3/uL (150-450); Red Blood Count 3.44 10^6/uL (4.06-5.63); Red Cell Distribution Width 13.1 % (12-17); White Blood Count 4.6 10^3/uL (3.6-10.2)
[2024-04-18 07:25] LABS: ABS Eosinophils 0.2 10^3/uL (0.0-0.5); ABS Lymphocytes 1.6 10^3/uL (1.0-4.8); ABS Monocytes 0.5 10^3/uL (0.0-1.1); ABS Neutrophils 2.3 10^3/uL (1.5-7.6); ABS Nucleated RBC 0.01 10^3/ul; Lymphocyte % 33.9 %; Nucleated Red Blood Cells % 0.1 %/100WBC (0.0-0.8)
[2024-04-18] MEDS: Furosemide 20 mg/2 ml IV VIAL IV ONE (10:38)
[2024-04-18] MEDS: D5LR 1000 ml BAG 1,000 ML IV SCH (11:20)
[2024-04-19 06:35] LABS: ABS Eosinophils 0.2 10^3/uL (0.0-0.5); ABS Lymphocytes 1.5 10^3/uL (1.0-4.8); ABS Monocytes 0.5 10^3/uL (0.0-1.1); ABS Neutrophils 2.6 10^3/uL (1.5-7.6); ABS Nucleated RBC 0.01 10^3/ul; Eosinophil % 4.5 %; Hematocrit 31.8 % (38-53); Hemoglobin 11.2 g/dL (13.2-16.3); Lymphocyte % 31.2 %; Mean Corpuscular Hemoglobin 34.6 pg (27-33); Mean Corpuscular Hgb Conc 35.1 g/dL (31-36); Mean Corpuscular Volume 98.4 fL (80-97); Mean Platelet Volume 8.4 fL (7.5-11.2); Nucleated Red Blood Cells % 0.1 %/100WBC (0.0-0.8); Platelet Count 153 10^3/uL (150-450); Red Blood Count 3.23 10^6/uL (4.06-5.63); White Blood Count 4.8 10^3/uL (3.6-10.2)
[2024-04-19 07:20] LABS: Calcium 8.7 mg/dL (8.6-10.3); Creatinine, Serum 0.84 mg/dL (0.67-1.17); Magnesium 1.7 mg/dL (1.9-2.7); Potassium 4.2 mmol/L (3.5-5.0); eGFR CKD-EPI 100.5 (>60)
[2024-04-19] MEDS: hydrALAZINE 20 mg/ml 1 ML Vial IV IV SLOW PU ONE (15:56)
[2024-04-21] MEDS: Diatrizoate Meg/Sod(CONTRAST) 30 ML ORAL.SOLN PO ONE (09:55)
[2024-04-21] MEDS ORDERED: Metoprolol Tartrate 5 mg VIAL 5 ml VIAL (1 mg/ml) IV SCH ×2 (20:00→23:58)
[2024-04-21] MEDS: Labetalol IV 5 MG/ML 20 ml VIAL IV PUSH ONE (20:10)
[2024-04-21] MEDS: Metoprolol Tartrate 5 mg VIAL 5 ml VIAL (1 mg/ml) IV SCH (23:44)
[2024-04-22 05:20] LABS: ABS Eosinophils 0.2 10^3/uL (0.0-0.5); ABS Lymphocytes 1.4 10^3/uL (1.0-4.8); ABS Monocytes 0.4 10^3/uL (0.0-1.1); ABS Neutrophils 2.7 10^3/uL (1.5-7.6); Eosinophil % 4.5 %; Hematocrit 32.8 % (38-53); Hemoglobin 11.5 g/dL (13.2-16.3); Lymphocyte % 29.9 %; Mean Corpuscular Hemoglobin 34.1 pg (27-33); Mean Corpuscular Hgb Conc 34.9 g/dL (31-36); Mean Corpuscular Volume 97.5 fL (80-97); Mean Platelet Volume 7.6 fL (7.5-11.2); Nucleated Red Blood Cells % 0.1 %/100WBC (0.0-0.8); Platelet Count 187 10^3/uL (150-450); Red Blood Count 3.37 10^6/uL (4.06-5.63); Red Cell Distribution Width 12.7 % (12-17); White Blood Count 4.8 10^3/uL (3.6-10.2)
[2024-04-22 05:38] LABS: Calcium 9.4 mg/dL (8.6-10.3); Creatinine, Serum 0.85 mg/dL (0.67-1.17); Magnesium 1.8 mg/dL (1.9-2.7); Potassium 4.5 mmol/L (3.5-5.0); eGFR CKD-EPI 100.1 (>60)
[2024-04-22] MEDS: Metoprolol Tartrate 5 mg VIAL 5 ml VIAL (1 mg/ml) IV SCH (07:02)
[2024-04-22] MEDS ORDERED: Magnesium Hydroxide LIQ 30 ML UDC PO PRN (08:11)
[2024-04-22] MEDS ORDERED: Polyethylene Glycol 3350 17 GM PACKET PO PRN (08:11)
[2024-04-22] MEDS: Polyethylene Glycol 3350 17 GM PACKET PO SCH (09:25)
[2024-04-22] MEDS: Magnesium Hydroxide LIQ 30 ML UDC PO SCH (09:27)
[2024-04-22 14:36] VITALS: BP 141/97
[2024-04-22] MEDS ORDERED: Senna TAB 8.6 mg TAB PO SCH (21:00)
== END 2024-04-22 16:45 | disposition home or self-care (01) | DRG 394 ==
LOC: ED 19:57 → EDHOLD 19:57 → SUATTDRO 04-14 13:23 → MEDTELE 04-14 18:12
PROVIDERS: ADMIT Internal Medicine; ATTEND Student in an Organized Health Care Education/Training Program